=== PATIENT | female | born 1945 | race Caucasian/White ===

== ENCOUNTER 2019-12-29 09:42 | Outpatient (REF) | payer BC, SELFPAY ==
--- NOTE | 2019-12-29 09:47 | MM_ITS ---
EXAMINATION: MM SCREENING DIGITAL BREAST TOMOSYNTHESIS, BILATERAL CLINICAL INFORMATION: Screening. Asymptomatic. The lifetime risk of breast cancer based on the Tyrer-Cuzick Model is 4.3%. COMPARISON: Mammography: November 03, 2018 and studies dating back to March 17, 2011 TECHNIQUE: Digital breast tomosynthesis is performed in both the craniocaudal and mediolateral oblique views along with computer-aided detection (CAD). Synthesized 2D images are generated from the tomosynthesis. FINDINGS: The breasts are heterogeneously dense, which may obscure small masses (ACR BI-RADS breast composition Category c). There are no significant masses, abnormal calcifications, or other abnormalities. MM/MM tomosynthesis screening BI IMPRESSION: There are no significant changes from prior study. ASSESSMENT: BI-RADS 1: Negative RECOMMENDATION: Routine annual mammography screening. This patient's information was entered into a reminder system with a target due date for their next mammogram.
== END 2019-12-29 09:43 | disposition home or self-care (01) ==
LOC: HO.MAMMO 09:42
PROVIDERS: Visit Provider Internal Medicine
DX: Z12.31 Encounter for screening mammogram for malignant neoplasm of breast (principal)
CPT/HCPCS: 77063; 77067

== ENCOUNTER 2020-09-09 07:27 | Day surgery (SDC) | payer MEDICARE, SELFPAY ==
[2020-09-02 14:04] VITALS: BMI 28.9
--- NOTE | 2020-09-05 08:00 | MHC.SHP ---
Pre-Procedural Eval Section A Date of Service: 09/05/20 The patient is an INPATIENT: No The History & Physical has been completed within 30 days and I have reviewed it.: Yes Section B Chief Complaint: Cataract Right Eye Allergies: Allergies Allergy/AdvReac Type Severity Reaction Status Date / Time No Known Allergies Allergy Verified 09/02/20 14:10 Plan Diagnosis/Plan: Unchanged I have reviewed the history and physical and performed a pertinent physical examination on my patient. No changes have occurred unless specified.
--- NOTE | 2020-09-06 10:50 | HO.ANESPROP2 ---
Documented by User: Michelle Mendez 09/06/20 10:52 HPI - Anesthesia Eval Consult details Narrative: 75yo F for Right Cataract Extraction IOL Insertion PCP cleared No prev cataract on record PMFSH Past Medical History Medical History Anxiety COPD (chronic obstructive pulmonary disease) Crohn's disease Depression Elevated cholesterol Lumbar radiculopathy Osteopenia Surgical History Surgical History Hx of appendectomy Hx of tonsillectomy Hx of tubal ligation Hx of wisdom tooth extraction Social History Social History Patient Tobacco Use Status: Former Tobacco user Quit Date: 5-10 years ago Tobacco use type: Cigarette Use of substances other than those prescribed or required for medical reasons: No Advance Directives Information Provided: No Meds Allergies Allergy/AdvReac Type Severity Reaction Status Date / Time No Known Allergies Allergy Verified 09/09/20 09:42 Home Medications Medication Instructions Recorded Confirmed Last Taken Type calcium carbonate-vitamin D2 1 tab PO DAILY 09/02/20 09/02/20 Unknown History [Calcium + Vitamin D] cetirizine 10 mg PO DAILY 09/02/20 09/02/20 Unknown History fluoxetine 2 cap PO QAM 09/02/20 09/02/20 Unknown History mesalamine 2 tab PO DAILY 09/02/20 09/02/20 Unknown History multivitamin 1 tab PO DAILY 09/02/20 09/02/20 Unknown History omega 3-iut-egc-fish oil [Fish Oil] 1 cap PO BID 09/02/20 09/02/20 Unknown History simvastatin 1 tab PO BEDTIME 09/02/20 09/02/20 Unknown History Exam Exam Date and Time: September 06, 2020 1050 Height,Weight and Vital Signs: Height 5 ft 2.75 in Weight 73.482 kg Assessment and Plan Assessment Anesthesia Assessment: Chart Reviewed Documented by User: Tayo King 09/09/20 10:38 [facility] Past Medical History Medical History Anxiety COPD (chronic obstructive pulmonary disease) Crohn's disease Depression Elevated cholesterol Lumbar radiculopathy Osteopenia Surgical History Surgical History Hx of appendectomy Hx of tonsillectomy Hx of tubal ligation Hx of wisdom tooth extraction Social History Social History Patient Tobacco Use Status: Former Tobacco user Quit Date: 5-10 years ago Tobacco use type: Cigarette Use of substances other than those prescribed or required for medical reasons: No Advance Directives Information Provided: No Meds Allergies Allergy/AdvReac Type Severity Reaction Status Date / Time No Known Allergies Allergy Verified 09/09/20 09:42 Home Medications Medication Instructions Recorded Confirmed Last Taken Type calcium carbonate-vitamin D2 1 tab PO DAILY 09/02/20 09/02/20 Unknown History [Calcium + Vitamin D] cetirizine 10 mg PO DAILY 09/02/20 09/02/20 Unknown History fluoxetine 2 cap PO QAM 09/02/20 09/02/20 Unknown History mesalamine 2 tab PO DAILY 09/02/20 09/02/20 Unknown History multivitamin 1 tab PO DAILY 09/02/20 09/02/20 Unknown History omega 1-mkt-lye-fish oil [Fish Oil] 1 cap PO BID 09/02/20 09/02/20 Unknown History simvastatin 1 tab PO BEDTIME 09/02/20 09/02/20 Unknown History Exam Airway Mallampati Class: II TM Dist: >3cm Neck ROM: Full Denture: Upper and Lower Heart: [id number] Lungs: cta b/l Assessment and Plan Assessment Anesthesia Assessment: Anesthesia Plan Discussed, PAT Visit and Chart Reviewed Final Anesthetic Review NPO: Yes ASA Class: III Final Preanesthetic Review: No Changes in Pt Med Stat, Meds/Allgs Chart Reviewed, Consent Obtained/Reviewed and Anes Risks/Benef Reviewed Patient Risk: Intermediate Procedure Risk: Low Assessment/Block/Sedation in SS: Assess/Block/Sedation-SS Anesthetic Plan Anesthetic Plan: MAC: and Agree w/ Assess. and Plan Disposition: Standard PACU
[2020-09-09 09:51] VITALS: BP 139/55; PULSE 63; RESP 18; TEMP 36.5; O2SAT 94
[2020-09-09] MEDS: Lactated Ringers 500 ML 50 ML IV (10:00)
[2020-09-09] MEDS: Tetracaine HCl/PF 0.5% Oph Sol 4 ML DROPS 1 DROP EYE-RIGHT (10:03)
[2020-09-09] MEDS: Tropicamide 1 % Ophth Sol 3 ML BTL 1 DROP EYE-RIGHT ×3 (10:04→10:16)
[2020-09-09] MEDS: Phenylephrine HCL 2.5% Oph SoL 2 ML BOTTLE 1 DROP EYE-RIGHT ×3 (10:08→10:20)
--- NOTE | 2020-09-09 11:12 | HO.PNOPHT ---
Ophthalmology Procedure Procedure Date of Service: 09/09/20 Ophthalmology Viscoelastic: Healon Duet Dual Pack Pro Ophthalmology Lenses: TECNIS [id number] (17.5) Procedure Notes: PREOPERATIVE DIAGNOSIS: Decreased visual acuity right eye secondary to cataract POSTOPERATIVE DIAGNOSIS: Same PROCEDURE: Right cataract extraction with intraocular lens insertion SURGEON: Shakir Mullins M.D. ANESTHESIA: Topical/MAC ESTIMATED BLOOD LOSS: None COMPLICATIONS: None After obtaining informed consent, the patient was brought to the operating room suite and placed in the supine position. After adequate sedation per anesthesia, topical drops of Tetracaine were given to the right eye. The eye was then prepped and draped in the usual sterile fashion. The operating room microscope was then positioned over the operative eye and a lid speculum placed. A paracentesis was created. Viscoelastic was then instilled into the anterior chamber. A three plane incision was then created temporally, utilizing a 2.85 mm keratome. Capsulotomy forceps were then utilized to create a circular tear capsulotomy. Hydrodissection and hydrodelineation were carried out until adequate mobilization of the nucleus occurred. Phacoemulsification was then utilized to remove the dense central nucleus followed by removal of the cortical material utilizing the automated aspiration irrigation unit. Viscoelastic was instilled into the posterior capsular bag followed by placement of a posterior chamber intraocular lens without difficulty. The residual Viscoelastic was then removed utilizing the automated IA machine. The wound was checked and found to be watertight. The patient tolerated the procedure well and the lid speculum was removed. Intracameral injection of Vigamox 0.1 mL followed by a subtenon injection of Kenalog-40 0.2 mL were administered. The patient will be seen in the a.m.
[2020-09-09 11:34] VITALS: BP 115/57; PULSE 66; RESP 12; TEMP 36.1; O2SAT 97
[2020-09-09 11:49] VITALS: BP 107/56; PULSE 64; RESP 16; O2SAT 97
== END 2020-09-09 12:00 | disposition home or self-care (01) ==
PROVIDERS: PCP Internal Medicine; Visit Provider Ophthalmology
PROC: (CPT 66985; principal; 2020-09-09 11:40)
DX: H25.11 Age-related nuclear cataract, right eye (principal); H54.7 Unspecified visual loss; J44.9 Chronic obstructive pulmonary disease, unspecified; E78.00 Pure hypercholesterolemia, unspecified; F33.1 Major depressive disorder, recurrent, moderate; Z79.899 Other long term (current) drug therapy; Z87.891 Personal history of nicotine dependence
CPT/HCPCS: 66984; J2250; J3010; J3300; V2632

== ENCOUNTER 2020-09-16 09:11 | Day surgery (SDC) | payer MEDICARE, SELFPAY ==
[2020-09-02 14:13] VITALS: BMI 28.9
--- NOTE | 2020-09-11 14:15 | MHC.SHP ---
Pre-Procedural Eval Section A Date of Service: 09/11/20 The patient is an INPATIENT: No The History & Physical has been completed within 30 days and I have reviewed it.: Yes Section B Chief Complaint: Cataract Left Eye Allergies: Allergies Allergy/AdvReac Type Severity Reaction Status Date / Time No Known Allergies Allergy Verified 09/09/20 09:42 Plan Diagnosis/Plan: Unchanged I have reviewed the history and physical and performed a pertinent physical examination on my patient. No changes have occurred unless specified.
--- NOTE | 2020-09-13 08:39 | HO.ANESPROP2 ---
Documented by User: Michelle Vanessa 09/13/20 08:40 HPI - Anesthesia Eval Consult details Narrative: 75yo F for Left Cataract Extraction IOL Insertion PCP cleared Right Eye 09/09/20: Fent 48, Midaz 2 PMFSH Past Medical History Medical History Anxiety COPD (chronic obstructive pulmonary disease) Crohn's disease Depression Elevated cholesterol Lumbar radiculopathy Osteopenia Surgical History Surgical History Hx of appendectomy Hx of tonsillectomy Hx of tubal ligation Hx of wisdom tooth extraction Social History Social History Patient Tobacco Use Status: Former Tobacco user Quit Date: 5-10 years ago Tobacco use type: Cigarette Use of substances other than those prescribed or required for medical reasons: No Advance Directives Information Provided: No Meds Allergies Allergy/AdvReac Type Severity Reaction Status Date / Time No Known Allergies Allergy Verified 09/16/20 10:33 Home Medications Medication Instructions Recorded Confirmed Last Taken Type calcium carbonate-vitamin D2 1 tab PO DAILY 09/02/20 09/02/20 Unknown History [Calcium + Vitamin D] cetirizine 10 mg PO DAILY 09/02/20 09/02/20 Unknown History fluoxetine 2 cap PO QAM 09/02/20 09/02/20 Unknown History mesalamine 2 tab PO DAILY 09/02/20 09/02/20 Unknown History multivitamin 1 tab PO DAILY 09/02/20 09/02/20 Unknown History omega 0-cgh-ury-fish oil [Fish Oil] 1 cap PO BID 09/02/20 09/02/20 08/26/20 History simvastatin 1 tab PO BEDTIME 09/02/20 09/02/20 Unknown History Exam Exam Date and Time: September 13, 2020 0839 Height,Weight and Vital Signs: Height 5 ft 2.75 in Weight 73.482 kg Assessment and Plan Assessment Anesthesia Assessment: Chart Reviewed Documented by User: Kaelyn Anti 09/16/20 11:13 PMFSH Past Medical History Medical History Anxiety COPD (chronic obstructive pulmonary disease) Crohn's disease Depression Elevated cholesterol Lumbar radiculopathy Osteopenia Surgical History Surgical History Hx of appendectomy Hx of tonsillectomy Hx of tubal ligation Hx of wisdom tooth extraction Social History Social History Patient Tobacco Use Status: Former Tobacco user Quit Date: 5-10 years ago Tobacco use type: Cigarette Use of substances other than those prescribed or required for medical reasons: No Advance Directives Information Provided: No Meds Allergies Allergy/AdvReac Type Severity Reaction Status Date / Time No Known Allergies Allergy Verified 09/16/20 10:33 Home Medications Medication Instructions Recorded Confirmed Last Taken Type calcium carbonate-vitamin D2 1 tab PO DAILY 09/02/20 09/02/20 Unknown History [Calcium + Vitamin D] cetirizine 10 mg PO DAILY 09/02/20 09/02/20 Unknown History fluoxetine 2 cap PO QAM 09/02/20 09/02/20 Unknown History mesalamine 2 tab PO DAILY 09/02/20 09/02/20 Unknown History multivitamin 1 tab PO DAILY 09/02/20 09/02/20 Unknown History omega 8-xbu-mgt-fish oil [Fish Oil] 1 cap PO BID 09/02/20 09/02/20 08/26/20 History simvastatin 1 tab PO BEDTIME 09/02/20 09/02/20 Unknown History Exam Airway Mallampati Class: II (Edentulous except for 1 bottom tooth) TM Dist: >3cm Neck ROM: Full Loose/Missing/Broken Teeth: Yes, Upper and Lower Heart: RRR Lungs: CTA Assessment and Plan Assessment Anesthesia Assessment: Anesthesia Plan Discussed and Chart Reviewed Final Anesthetic Review NPO: Yes ASA Class: II Final Preanesthetic Review: Meds/Allgs Chart Reviewed, Consent Obtained/Reviewed and Anes Risks/Benef Reviewed Patient Risk: Low Procedure Risk: Low Anesthetic Plan Anesthetic Plan: MAC: Disposition: Standard PACU
[2020-09-16 10:35] VITALS: BP 171/49; PULSE 77; RESP 16; TEMP 36.7; O2SAT 95
[2020-09-16] MEDS: Tetracaine HCl/PF 0.5% Oph Sol 4 ML DROPS 1 DROP EYE-LEFT (10:48)
[2020-09-16] MEDS: Lactated Ringers 500 ML 50 ML IV (10:48)
[2020-09-16] MEDS: Tropicamide 1 % Ophth Sol 3 ML BTL 1 DROP EYE-LEFT ×3 (10:50→10:57)
[2020-09-16] MEDS: Phenylephrine HCL 2.5% Oph SoL 2 ML BOTTLE 1 DROP EYE-LEFT ×3 (10:53→10:58)
--- NOTE | 2020-09-16 12:13 | HO.PNOPHT ---
Ophthalmology Procedure Procedure Date of Service: 09/16/20 Ophthalmology Viscoelastic: Healon Duet Dual Pack Pro Ophthalmology Lenses: TECNIS [id number] (16.5) Procedure Notes: PREOPERATIVE DIAGNOSIS: Decreased visual acuity left eye secondary to cataract POSTOPERATIVE DIAGNOSIS: Same PROCEDURE: Left cataract extraction with intraocular lens insertion SURGEON: Shakir Mullins M.D. ANESTHESIA: Topical/MAC ESTIMATED BLOOD LOSS: None COMPLICATIONS: None After obtaining informed consent, the patient was brought to the operation room suite and placed in the supine position. After adequate sedation per anesthesia, topical drops of Tetracaine were given to the left eye. The eye was then prepped and draped in the usual sterile fashion. The operating room microscope was then positioned over the operative eye and a lid speculum placed. A paracentesis was created. Viscoelastic was then instilled into the anterior chamber. A three plane incision was then created temporally, utilizing a 2.85 mm keratome. Capsulotomy forceps were then utilized to create a circular tear capsulotomy. Hydrodissection and hydrodelineation were carried out until adequate mobilization of the nucleus occurred. Phacoemulsification was then utilized to remove the dense central nucleus followed by removal of the cortical material utilizing the automated aspiration irrigation unit. Viscoat elastic was instilled into the posterior capsular bag followed by placement of a posterior chamber intraocular lens without difficulty. The residual Viscoat elastic was then removed utilizing the automated IA machine. The wound was check and found to be watertight. The patient tolerated the procedure well and the lid speculum was removed. Intracameral injection of Vigamox 0.1 mL followed by a subtenon injection of Kenalog-40 0.2 mL were administered. The patient will be seen in the a.m.
[2020-09-16 12:45] VITALS: BP 149/41; PULSE 76; RESP 16; TEMP 36.2; O2SAT 93
== END 2020-09-16 13:12 | disposition home or self-care (01) ==
PROVIDERS: PCP Internal Medicine; Visit Provider Ophthalmology
PROC: (CPT 66985; principal; 2020-09-16 12:20)
DX: H25.12 Age-related nuclear cataract, left eye (principal); H54.7 Unspecified visual loss; E78.00 Pure hypercholesterolemia, unspecified; K50.10 Crohn's disease of large intestine without complications; F33.1 Major depressive disorder, recurrent, moderate; M85.80 Other specified disorders of bone density and structure, unspecified site; Z79.899 Other long term (current) drug therapy; Z87.891 Personal history of nicotine dependence
CPT/HCPCS: 66984; J2250; J3010; J3300; V2632

== ENCOUNTER 2021-01-10 11:41 | Outpatient (REF) | payer MEDICARE, SELFPAY ==
--- NOTE | ~2021-01-10 | MM_ITS ---
EXAMINATION: MM SCREENING DIGITAL BREAST TOMOSYNTHESIS, BILATERAL CLINICAL INFORMATION: Screening. Asymptomatic. The lifetime risk of breast cancer based on the Tyrer-Cuzick Model is 5%. COMPARISON: Mammography: 12/29/2019, 11/03/2018, 11/01/2017 TECHNIQUE: Digital breast tomosynthesis is performed in both the craniocaudal and mediolateral oblique views along with computer-aided detection (CAD). Synthesized 2D images are generated from the tomosynthesis. Additional left MLO view is provided. FINDINGS: The breasts are heterogeneously dense, which may obscure small masses (ACR BI-RADS breast composition Category c). Breast tissue composition borders on average fibroglandular. Parenchymal pattern is similar to prior studies. There is no developing density or interval mass or architectural abnormality. Again, there are scattered bilateral benign circumscribed heavily calcified nodularity, likely fat necrosis. Scattered bilateral punctate calcifications are again seen. The axilla and skin contours are unremarkable. No significant changes. MM/MM tomosynthesis screening BI IMPRESSION: No mammographic evidence of malignancy. ASSESSMENT: BI-RADS 2: Benign RECOMMENDATION: Routine annual mammography screening. This patient's information was entered into a reminder system with a target due date for their next mammogram.
== END 2021-01-10 11:42 | disposition home or self-care (01) ==
LOC: HO.MAMMO 11:41
PROVIDERS: PCP Internal Medicine; Visit Provider Internal Medicine
DX: Z12.31 Encounter for screening mammogram for malignant neoplasm of breast (principal)
CPT/HCPCS: 77063; 77067

== ENCOUNTER 2021-04-04 09:22 | Outpatient (REF) | payer MEDICARE, SELFPAY ==
[2021-04-04 11:23] LABS: MANUAL DIFF FLAG NO
[2021-04-04 11:26] LABS: Basophils Percent Auto 0.5 % (0-2); Eosinophils Absolute Auto 0.1 X10*3/uL (0.0-0.4); Eosinophils Percent Auto 1.5 % (0-4); Hematocrit 44.9 % (37.0-47.0); Hemoglobin 14.4 g/dl (12.0-16.0); Imm Gran Abs Auto 0.02 X10*3/uL (0.00-0.03); Imm Gran Pct Auto 0.3 % (0.0-0.4); Lymphocytes Absolute Auto 1.6 X10*3/uL (1.2-4.9); Lymphocytes Percent Auto 25.1 % (20-40); Mean Corpuscular HGB Conc 32.1 g/dl (31.0-35.0); Mean Corpuscular Hemoglobin 30.8 pg (27.0-33.0); Mean Corpuscular Volume 96.1 fL (80.0-98.0); Mean Platelet Volume 11.4 fL (9.4-12.3); Monocytes Absolute Auto 0.4 X10*3/uL (0.1-1.2); Monocytes Percent Auto 6.6 % (2-11); Neutrophils Absolute Auto 4.1 x10*3/uL (2.0-8.3); Platelet Count 224 X10*3/uL (160-400); Red Blood Count 4.67 X10*6/uL (4.20-5.50); White Blood Count 6.2 X10*3/uL (4.8-10.8)
[2021-04-04 11:52] LABS: Appearance Urine CLEAR; Color Urine YELLOW; Glucose Urine UA NEG (NEG); Leukocyte Esterase Urine NEG (NEG); Nitrite Urine NEG (NEG); PH 5.5 (5.0-8.0); Specific Gravity - Urine >= 1.030 (1.005-1.025); Urine Blood NEG (NEG); Urine Ketones NEG (NEG); Urine Protein NEG (NEG-TRACE)
[2021-04-04 11:57] LABS: Alanine Aminotransferase 15 U/L (0-31); Albumin Level 4.4 g/dL (3.5-5.0); Alkaline Phosphatase 86 U/L (39-117); Anion Gap 15 (12-20); Aspartate Amino Transferase 19 U/L (5-31); Bilirubin Total 0.9 mg/dL (0.0-1.0); Blood Urea Nitrogen 8 mg/dL (9-16); Calcium 9.5 mg/dL (8.4-10.2); Carbon Dioxide 25 mmol/L (22-29); Chloride 105 mmol/L (96-108); Cholesterol 183 mg/dL; Estimated Glomerular Filt Rate > 60; Glucose Fasting 103 mg/dL (60-99); HDL Cholesterol 48 mg/dL; LDL Cholesterol Calculated 98 mg/dl; Potassium 4.3 mmol/L (3.3-5.1); Sodium 141 mmol/L (135-145); Total Protein 7.1 g/dL (6.5-8.0); Triglycerides 185 mg/dL
[2021-04-04 11:58] LABS: Thyroid Stimulating Hormone 1.57 uIU/mL (0.32-4.0)
[2021-04-04 12:42] LABS: Bacteria Urine TRACE /LPF; RBC Urine 0 /HPF (0); Squamous Epithelial Cell Urine 2+ /LPF; WBC Urine 0-2 /HPF (0-4)
== END 2021-04-04 09:23 | disposition home or self-care (01) ==
LOC: HO.HMGCLDS 09:22
PROVIDERS: Visit Provider Internal Medicine
DX: K50.10 Crohn's disease of large intestine without complications (principal); E78.00 Pure hypercholesterolemia, unspecified; F41.9 Anxiety disorder, unspecified
CPT/HCPCS: 36415; 80053; 80061; 81001; 82306; 84443; 85025

== ENCOUNTER 2021-04-11 09:14 | Outpatient (REF) | payer MEDICARE, SELFPAY ==
--- NOTE | 2021-04-11 10:01 | MHC.AU.ANO ---
Adult Audiological Evaluation Date of Visit: 04/11/21 Reason for Appointment: Patient has begun to notice increased difficulty hearing the television, especially if there is music or sound effects in the background. She has started to use closed captioning to help her follow along. She feels she hears well in most conversations. Has hearing been tested previously?: No Ear History: Ear Deformity: None Reported Recent Ear Drainage: None Reported Recent Ear Pain: None Reported Family History of Hearing Loss?: Yes: Mother Recent Ear Infections: None Reported Ear Infections in Childhood: Both Ears History of Ear Wax Buildup: None Reported Previous Ear Surgery: None Reported Bothersome Tinnitus/Ringing/Noises in Ears: Both Ears Ear used on the phone: Right Ear Blocked/Full Sensation in Ear(s): None Reported History of occupational noise exposure?: No History: No Medical History: Medical History: Crohn's Disease, Tobacco Use (former smoker), Tonsillectomy at age 4 Medication List: Mesalamine, Simvastatin, Fluoxetine, Fish Oil, Calcium, Cetirizine, Multivitamin Otoscopy: Right Ear: Unremarkable Left Ear: Unremarkable Tympanometry: Tympanometry performed due to: To assess integrity of the middle ear system Right Ear: Normal Middle Ear System (Type A) Left Ear: Normal Middle Ear System (Type A) Hearing Evaluation: Transducer(s) Used: Insert Earphones Method: Conventional Audiometry Stimuli Used: Pure Tones Right Ear: Description of Hearing: Normal/borderline-normal from 250-2000 Hz, sloping to severe sensorineural hearing loss by 8000 Hz Left Ear: Description of Hearing: Normal/borderline-normal from 250-2000 Hz, sloping to severe sensorineural hearing loss by 8000 Hz Speech Recognition Threshold (SRT): Method Used: Recorded Lists Stimuli Used: Spondee Words Right Ear: 20 dBHL Left Ear: 15 dBHL Word Discrimination: Method: Recorded Lists Word Lists Used: W-22 Right Ear: 96% at 60 dBHl Left Ear: 100% at 60 dBHL Most Comfortable Level (MCL): Right Ear: 60 dBHL Left Ear: 60 dBHL Recommendations: Audiological re-evaluation in 2 years, or sooner if changes are noted. Amplification is not warranted at this time. Diagnosis: Primary Diagnosis: H90.3 Bilateral Sensorineural Hearing Loss Signature: Provider: Russell Montiel, CCC-A
== END 2021-04-11 09:15 | disposition home or self-care (01) ==
LOC: HO.SH 09:14
PROVIDERS: Visit Provider Internal Medicine
DX: Z01.118 Encounter for examination of ears and hearing with other abnormal findings (principal); H90.3 Sensorineural hearing loss, bilateral
CPT/HCPCS: 92557; 92567

== ENCOUNTER 2022-01-12 11:46 | Outpatient (REF) | payer MEDICARE, SELFPAY ==
--- NOTE | ~2022-01-12 | MM_ITS ---
EXAMINATION: MM SCREENING DIGITAL BREAST TOMOSYNTHESIS, BILATERAL CLINICAL INFORMATION: Screening. Asymptomatic. Family history breast cancer, sister. COMPARISON: Mammography: 01/10/2021, 12/29/2019, 11/03/2018 TECHNIQUE: Digital breast tomosynthesis is performed in both the craniocaudal and mediolateral oblique views along with computer-aided detection (CAD). Synthesized 2D images are generated from the tomosynthesis. FINDINGS: The breasts are heterogeneously dense, which may obscure small masses (ACR BI-RADS breast composition Category c). There are no significant masses, abnormal calcifications, or other abnormalities. Breast tissue composition borders on average fibroglandular. Scattered bilateral benign circumscribed heavily calcified nodularity is present along with scattered punctate benign round calcifications Breast. There is no interval significant mass, developing density, or architectural abnormality. No significant changes. MM/MM tomosynthesis screening BI IMPRESSION: No mammographic evidence of malignancy. ASSESSMENT: BI-RADS 2: Benign RECOMMENDATION: Routine annual mammography screening. This patient's information was entered into a reminder system with a target due date for their next mammogram.
== END 2022-01-12 11:47 | disposition home or self-care (01) ==
LOC: HO.MAMMO 11:46
PROVIDERS: PCP Internal Medicine; Visit Provider Internal Medicine
DX: Z12.31 Encounter for screening mammogram for malignant neoplasm of breast (principal)
CPT/HCPCS: 77063; 77067

== ENCOUNTER 2023-01-08 09:14 | Outpatient (REF) | payer MEDICARE, SELFPAY ==
[2023-01-08 11:26] LABS: MANUAL DIFF FLAG NO
[2023-01-08 11:38] LABS: Basophils Percent Auto 0.5 % (0-2); Eosinophils Absolute Auto 0.1 X10*3/uL (0.0-0.4); Eosinophils Percent Auto 2.4 % (0-4); Hematocrit 43.6 % (37.0-47.0); Hemoglobin 14.2 g/dl (12.0-16.0); Imm Gran Abs Auto 0.01 X10*3/uL (0.00-0.03); Imm Gran Pct Auto 0.2 % (0.0-0.4); Lymphocytes Absolute Auto 1.8 X10*3/uL (1.2-4.9); Lymphocytes Percent Auto 42.8 % (20-40); Mean Corpuscular HGB Conc 32.6 g/dl (31.0-35.0); Mean Corpuscular Volume 98.2 fL (80.0-98.0); Mean Platelet Volume 10.5 fL (9.4-12.3); Monocytes Absolute Auto 0.5 X10*3/uL (0.1-1.2); Monocytes Percent Auto 11.1 % (2-11); Neutrophils Absolute Auto 1.8 x10*3/uL (2.0-8.3); Platelet Count 181 X10*3/uL (160-400); Red Blood Count 4.44 X10*6/uL (4.20-5.50); Red Cell Distribution Width 13.9 % (11.0-16.0); White Blood Count 4.1 X10*3/uL (4.8-10.8)
[2023-01-08 12:21] LABS: Thyroid Stimulating Hormone 2.79 uIU/mL (0.32-4.0); Vitamin D 25-OH Total 90.5 ng/mL (>30)
[2023-01-08 12:29] LABS: Anion Gap 11 (12-20)
[2023-01-08 12:34] LABS: Alanine Aminotransferase 21 U/L (0-31); Albumin Level 4.3 g/dL (3.5-5.0); Alkaline Phosphatase 71 U/L (39-117); Aspartate Amino Transferase 26 U/L (5-31); Bilirubin Total 0.7 mg/dL (0.0-1.0); Blood Urea Nitrogen 12 mg/dL (9-16); Calcium 9.2 mg/dL (8.4-10.2); Carbon Dioxide 30 mmol/L (22-29); Chloride 104 mmol/L (96-108); Cholesterol 183 mg/dL (<200); Estimated Glomerular Filt Rate > 60; Glucose Fasting 111 mg/dL (60-99); HDL Cholesterol 66 mg/dL (>40); LDL Cholesterol Calculated 88 mg/dL (<100); Potassium 3.7 mmol/L (3.3-5.1); Sodium 141 mmol/L (135-145); Total Protein 7.2 g/dL (6.5-8.0); Triglycerides 147 mg/dL (<150)
== END 2023-01-08 09:15 | disposition home or self-care (01) ==
LOC: HO.HMGCLDS 09:14
PROVIDERS: PCP Internal Medicine; Visit Provider Internal Medicine
DX: Z00.00 Encounter for general adult medical examination without abnormal findings (principal); E78.00 Pure hypercholesterolemia, unspecified; K50.10 Crohn's disease of large intestine without complications; F41.9 Anxiety disorder, unspecified
CPT/HCPCS: 36415; 80053; 80061; 82306; 84443; 85025

== ENCOUNTER 2023-01-16 10:30 | Outpatient (REF) | payer MEDICARE, SELFPAY ==
--- NOTE | ~2023-01-16 | MM_ITS ---
EXAMINATION: MM SCREENING DIGITAL BREAST TOMOSYNTHESIS, BILATERAL CLINICAL INFORMATION: Screening. Asymptomatic. COMPARISON: Mammography: This study is compared with prior exams dating back to 2017. TECHNIQUE: Digital breast tomosynthesis is performed in both the craniocaudal and mediolateral oblique views along with computer-aided detection (CAD). Synthesized 2D images are generated from the tomosynthesis. FINDINGS: There are scattered areas of fibroglandular density (ACR BI-RADS breast composition Category b). There are no significant masses, abnormal calcifications, or other abnormalities. Multiple, bilateral benign calcifications are present. MM/MM tomosynthesis screening BI IMPRESSION: No mammographic evidence of malignancy. ASSESSMENT: BI-RADS BI-RADS 2 - Benign Findings RECOMMENDATION: Routine annual mammography screening. 1 year F/U This examination should not preclude the clinical evaluation of a suspicious palpable abnormality. This patient's information was entered into a reminder system with a target due date for their next mammogram.
== END 2023-01-16 10:31 | disposition home or self-care (01) ==
LOC: HO.MAMMO 10:30
PROVIDERS: PCP Internal Medicine; Visit Provider Internal Medicine
DX: Z12.31 Encounter for screening mammogram for malignant neoplasm of breast (principal)
CPT/HCPCS: 77063; 77067

== ENCOUNTER → 2023-01-16 10:30 | Outpatient (BNV) | payer MEDICARE, SELFPAY | PROVIDERS: PCP Internal Medicine; Visit Provider Radiology Diagnostic Radiology | DX: Z12.31 Encounter for screening mammogram for malignant neoplasm of breast (principal) | CPT/HCPCS: 77063; 77067 ==

== ENCOUNTER 2023-07-24 09:47 | Outpatient (REF) | payer MEDICARE, SELFPAY ==
[2023-07-24 12:32] LABS: Anion Gap 16 (12-20); Blood Urea Nitrogen 12 mg/dL (9-16); Carbon Dioxide 32 mmol/L (22-29); Chloride 95 mmol/L (96-108); Estimated Glomerular Filt Rate > 60; Glucose Random 176 mg/dL (60-115); Potassium 2.8 mmol/L (3.3-5.1); Sodium 140 mmol/L (135-145)
== END 2023-07-24 09:48 | disposition home or self-care (01) ==
LOC: HO.HMGCLDS 09:47
PROVIDERS: PCP Internal Medicine; Visit Provider Internal Medicine
DX: R60.0 Localized edema (principal)
CPT/HCPCS: 36415; 80048

== ENCOUNTER 2023-08-10 07:27 | Outpatient (REF) | payer MEDICARE, SELFPAY ==
[2023-08-10 11:05] LABS: Alanine Aminotransferase 28 U/L (0-31); Albumin Level 4.3 g/dL (3.5-5.0); Alkaline Phosphatase 79 U/L (39-117); Anion Gap 15 (12-20); Aspartate Amino Transferase 44 U/L (5-31); Bilirubin Total 1.1 mg/dL (0.0-1.0); Blood Urea Nitrogen 9 mg/dL (9-16); Calcium 9.6 mg/dL (8.4-10.2); Carbon Dioxide 30 mmol/L (22-29); Chloride 98 mmol/L (96-108); Estimated Glomerular Filt Rate > 60; Glucose Random 136 mg/dL (60-115); Potassium 3.1 mmol/L (3.3-5.1); Sodium 140 mmol/L (135-145); Total Protein 7.4 g/dL (6.5-8.0)
== END 2023-08-10 07:28 | disposition home or self-care (01) ==
LOC: HO.HMGCLDS 07:27
PROVIDERS: PCP Internal Medicine; Visit Provider Internal Medicine
DX: R60.0 Localized edema (principal)
CPT/HCPCS: 36415; 80053

== ENCOUNTER → 2023-12-01 15:01 | Outpatient (REF) | payer MEDICARE, SELFPAY ==
--- NOTE | 2023-12-01 15:03 | ECG_ITS ---
Test Reason : dyspnea on exertion Blood Pressure : / mmHG Vent. Rate : 075 BPM Atrial Rate : 075 BPM P-R Int : 160 ms QRS Dur : 076 ms QT Int : 414 ms P-R-T Axes : 068 062 077 degrees QTc Int : 462 ms Normal sinus rhythm Nonspecific ST and T wave abnormality Abnormal ECG When compared with ECG of 06-JUL-2006 10:51, Nonspecific T wave abnormality no longer evident in Inferior leads T wave inversion now evident in Anterior leads Referred By: Isaias Suárez Electronically Signed By:NAVI THORPE MD
--- NOTE | 2023-12-01 15:05 | CA_ITS ---
Transthoracic Echocardiogram Patient (Last, First, Middle): Geno Sarah A Gender: Female Date of : 1945 Age: 78 Procedure Date: 12/01/2023 Procedure Type: Transthoracic Echocardiogram Location: OP Height: 162.56 cm Weight: 72.58 kg BSA: 1.78 m2 Heart Rate: bpm BP: 140 / 72 mmHg [employer] Supervisor: TO Referring MD: Isaias Suárez DO Stringing Machine Tender: Gama Ford MD Symptoms: DYSPNEA ON EXERTION Study Quality: Technically Difficult, contrast ECG Rhythm: Sinus Conclusions: - 1. Technically limited study despite use of contrast agent 2. LV systolic function appears to be normal with LVEF of 60-65% 3. Limited visualization of cardiac valves with cardiac valvular Dopplers within normal limits Findings Procedure Information Contrast agent, definity, is being given per protocol without apparent complications. The study quality is limited by patients body habitus and lung artifact. Left Ventricle The left ventricle was not well visualized. Normal left ventricular cavity size. The left ventricular systolic function is normal. The visually estimated ejection fraction is between 60-65%. Spectral Doppler is indicative of an impaired relaxation filling pattern. Right Ventricle The right ventricle was not well visualized. Atria The left atrium was not well visualized. Interatrial shunt cannot be excluded. The right atrium was not well visualized. Aortic Valve The aortic valve was not well visualized. There is no aortic valve stenosis. There is no aortic valve regurgitation. Mitral Valve The mitral valve was not well visualized. There is mild posterior mitral leaflet thickening. There is mild posterior mitral annular calcification. There is no mitral valve regurgitation. There is no mitral valve stenosis. Pulmonic Valve The pulmonic valve was not well visualized. Tricuspid Valve The tricuspid valve was not well visualized. Tricuspid regurgitation envelope is inadequate for calculation of right ventricular systolic pressure. Great Vessels The aorta was not well visualized. The pulmonary artery was not well visualized. Venous The inferior vena cava is normal in size and collapses greater than 50% with inspiration. Pericardium/Pleural There is a small loculated pericardial effusion overlying the right ventricle. this is visualized only on subcostal view and pericardium was not entirely otherwise well visualized. Prior Study Comparison No prior study available for comparison. Measurements 2D Linear Measurements IVSd: 0.96 0.6-0.9/0.6-1.0 cm LVIDd: 3.35 3.9-5.3/4.2-5.9 cm LVIDd Index: 1.88 2.4-3.2/2.2-3.1 cm/m2 LVIDs: 2.45 2.0-3.6 cm LVPWd: 0.90 0.7-1.1 cm LA Diam: 2.90 2.7-3.8/3.0-4.0 cm LAIDs Index: 1.63 1.5-2.3 cm/m2 LV Mass: 108.32 67-162/88-224 g LV Mass Index: 60.85 43-95/49-115 g/m2 LVOT Diam: 2.00 3.0+(-)1.3 cm Mitral Valve MV VTI: 0.28 MV Pk Omer: 1.26 MV Mn Omer: 0.67 MV Pk Grad: 6.00 MV Mn Grad: 2.00 MV Pk E: 0.74 MV PK A: 1.10 MV Decel Time: 234.00 E/A: 0.70 E'Lateral: 5.00 E'Medial: 5.11 E/E' Med: 14.40 E/E' Lat: 14.70 PHT: 68.00 MVA PHT: 3.24 MVA Continuity: 2.32 Decel [place]: 3.15 Aortic Valve AoV Pk Omer: 0.96 AoV Pk Grad: 4.00 LVOT LVOT Pk Omer: 0.95 LVOT Mn Omer: 0.56 LVOT VTI: 0.21 LVOT Pk Grad: 4.00 LVOT Mn Grad: 2.00 LVOT Diam: 2.00 LVOT Area: 3.14 Diastolic Function MV Pk E: 0.74 MV Pk A: 1.10 E/A: 0.70 E'Medial: 5.11 E/E' Med: 14.40 E' Laterial: 5.00 E/E' Lat: 14.70 Right Ventricle TVS' Omer: 11.60 Tricuspid Valve RA Press: 3.00 Great Vessels Aorta Sinus of Valsalva: 2.86 2.0-3.5 cm Updated in Other Vendor System with Status of Final Gama Ford MD electronically signed on 12/02/2023 11:50:35 AM with status of Final
== END ==
LOC: HO.CARD 15:01
PROVIDERS: PCP Internal Medicine; Visit Provider Internal Medicine
DX: R06.09 Other forms of dyspnea (principal)
CPT/HCPCS: 93005; 93306; Q9957

== ENCOUNTER → 2023-12-01 15:03 | Outpatient (BNV) | payer MEDICARE, SELFPAY | PROVIDERS: PCP Internal Medicine; Visit Provider Internal Medicine Cardiovascular Disease | DX: I34.81 Nonrheumatic mitral (valve) annulus calcification (principal); R06.09 Other forms of dyspnea; R94.31 Abnormal electrocardiogram [ECG] [EKG] | CPT/HCPCS: 93010; 93306 ==

== ENCOUNTER 2023-12-09 10:00 | Outpatient (REF) | payer MEDICARE, SELFPAY ==
--- NOTE | ~2023-12-09 | XR_ITS ---
EXAMINATION: XR CHEST 2 VIEWS CLINICAL INFORMATION: Dyspnea R06.09. COMPARISON: XR Chest 08/28/2014 (Report only). TECHNIQUE: 2 views of the chest were obtained. FINDINGS: The lungs are hyperexpanded. No consolidation, edema, or effusion. No pneumothorax. The cardiomediastinal silhouette is normal in size with a calcified aorta. Mild degenerative changes of the spine. XR/XR chest 2V IMPRESSION: Hyperexpanded lungs. No consolidation. Electronically signed by: Sergio Hwang MD 02/02/2024 07:54 AM EST
[2023-12-09 13:19] LABS: MANUAL DIFF FLAG NO
[2023-12-09 13:34] LABS: Basophils Percent Auto 0.6 % (0-2); Eosinophils Absolute Auto 0.2 X10*3/uL (0.0-0.4); Eosinophils Percent Auto 4.1 % (0-4); Hematocrit 46.1 % (37.0-47.0); Hemoglobin 14.9 g/dl (12.0-16.0); Imm Gran Abs Auto 0.01 X10*3/uL (0.00-0.03); Imm Gran Pct Auto 0.2 % (0.0-0.4); Lymphocytes Absolute Auto 2.1 X10*3/uL (1.2-4.9); Lymphocytes Percent Auto 39.9 % (20-40); Mean Corpuscular HGB Conc 32.3 g/dl (31.0-35.0); Mean Corpuscular Hemoglobin 32.8 pg (27.0-33.0); Mean Corpuscular Volume 101.5 fL (80.0-98.0); Mean Platelet Volume 10.9 fL (9.4-12.3); Monocytes Absolute Auto 0.4 X10*3/uL (0.1-1.2); Monocytes Percent Auto 8.3 % (2-11); Neutrophils Absolute Auto 2.5 x10*3/uL (2.0-8.3); Neutrophils Percent Auto 46.9 % (45-73); Platelet Count 143 X10*3/uL (160-400); Red Blood Count 4.54 X10*6/uL (4.20-5.50); Red Cell Distribution Width 12.7 % (11.0-16.0); White Blood Count 5.3 X10*3/uL (4.8-10.8)
[2023-12-09 14:03] LABS: Alanine Aminotransferase 28 U/L (0-31); Albumin Level 4.4 g/dL (3.5-5.0); Alkaline Phosphatase 79 U/L (39-117); Anion Gap 12 (12-20); Aspartate Amino Transferase 28 U/L (5-31); Bilirubin Total 0.7 mg/dL (0.0-1.0); Blood Urea Nitrogen 8 mg/dL (9-16); Calcium 9.6 mg/dL (8.4-10.2); Carbon Dioxide 29 mmol/L (22-29); Chloride 104 mmol/L (96-108); Estimated Glomerular Filt Rate > 60; Glucose Random 199 mg/dL (60-115); Potassium 3.6 mmol/L (3.3-5.1); Sodium 141 mmol/L (135-145); Total Protein 7.2 g/dL (6.5-8.0)
[2023-12-09 14:20] LABS: Thyroid Stimulating Hormone 1.58 uIU/mL (0.32-4.0)
[2023-12-09 14:22] LABS: B Type Natriuretic Peptide 72 pg/mL (<100)
== END 2023-12-09 10:01 | disposition home or self-care (01) ==
LOC: HO.HMGCX 10:00
PROVIDERS: PCP Internal Medicine; Visit Provider Internal Medicine
DX: R06.09 Other forms of dyspnea (principal); E78.00 Pure hypercholesterolemia, unspecified
CPT/HCPCS: 36415; 71046; 80053; 83880; 84443; 85025

== ENCOUNTER 2024-02-01 14:31 | Outpatient (REF) | payer MEDICARE, SELFPAY | END 2024-02-01 14:32 | disposition home or self-care (01) | LOC: HO.MAMMO 14:31 | PROVIDERS: PCP Internal Medicine; Visit Provider Internal Medicine | DX: Z12.31 Encounter for screening mammogram for malignant neoplasm of breast (principal) | CPT/HCPCS: 77063; 77067 ==

== ENCOUNTER → 2024-02-01 14:45 | Outpatient (BNV) | payer MEDICARE, SELFPAY | PROVIDERS: PCP Internal Medicine; Visit Provider Internal Medicine | DX: Z12.31 Encounter for screening mammogram for malignant neoplasm of breast (principal) | CPT/HCPCS: 77063; 77067 ==

== ENCOUNTER 2024-04-05 11:04 | Outpatient (AMB) | payer MEDICARE, SELFPAY ==
--- NOTE | 2024-04-05 11:12 | A.OFFPC_ITS ---
Vital Signs 04/05/24 11:19 Height 5 ft 1 in Weight 166 lb BMI 31.4 BP 132/58 L Blood Pressure Location Rt brachial Position Right Lateral Pulse 77 Pulse Source Pulse Oximeter Temp 97.0 F Pulse Oximetry (%) 97 Intake Visit Reasons: 3 month follow up Intake Note: would like to discuus her breathing and up coming mammogram and adema sugar has been high questioning diabetes Allergies No Known Allergies Allergy (Verified 04/05/24 11:41) Medication List - Last Reconciled 04/05/24 by Evelyn Rose PA-C albuterol sulfate 90 mcg/actuation 1 inh inhalation QID calcium carbonate-vitamin D2 600 mg calcium- 200 unit 1 tab PO DAILY cetirizine 10 mg PO DAILY fluoxetine 2 caps PO QAM fluticasone propion-salmeterol 250-50 mcg/dose 1 inh inhalation BID multivitamin 1 tab PO DAILY omega 0-tkz-lhp-fish oil 1,200 (144-216) mg (Fish Oil) 1 cap PO BID simvastatin 1 tab PO BEDTIME [facility] Medical History History of mammogram (~02/01/24) Peripheral edema Fibrocystic breast disease Mild hypercholesterolemia Lumbar radiculopathy Osteopenia Crohn's disease Anxiety Depression COPD (chronic obstructive pulmonary disease) Elevated cholesterol Surgical History History of colonoscopy (~08/12/18) Hx of appendectomy Hx of tubal ligation Hx of wisdom tooth extraction Hx of tonsillectomy Social History Patient Tobacco Use Status: Former Tobacco user Tobacco use type: Cigarette Physical exam (Primary Care) Vital Signs: Last Vital Signs Temp 97.0 F 04/05/24 11:19 Pulse 77 04/05/24 11:19 BP 132/58 L 04/05/24 11:19 Pulse Ox 97 04/05/24 11:19 Care Plan Goal for BP management: 130/80 at goal BMI result Body Mass Index 31.4 BMI Assessment/Plan discussion: High BMI High, discussed plan: lifestyle, weight reduction, dietary, physical activity and alcohol moderation Tobacco/Smoking Status: Tobacco use Status Patient Tobacco Use Status Former Tobacco user 04/05/24 11:17 Tobacco use type Cigarette 04/05/24 11:17 Coding Level of Care Code New Pt Level 4 (04619) Complex EM visit Add On G2211 Diagnoses Peripheral edema R60.0 Fibrocystic breast disease N60.19 Mild hypercholesterolemia E78.00 COPD (chronic obstructive pulmonary disease) J44.9 Depression F32.9 Anxiety F41.9 Osteopenia M85.80 Crohn's disease K50.90 Assessment & Plan Assessment & Plan (1) Peripheral edema: Code(s): R60.0 - Localized edema Category: Medical Plan: Condition is chronic stable continue to monitor. (2) Fibrocystic breast disease: Code(s): N60.19 - Diffuse cystic mastopathy of unspecified breast Category: Medical Plan: Condition is chronic stable continue to monitor. (3) Mild hypercholesterolemia: Code(s): E78.00 - Pure hypercholesterolemia, unspecified Category: Medical Plan: Patient currently on simvastatin once at bedtime, fish oil and multivitamin along with vitamin-D. Condition is chronic staple wants any to monitor. (4) COPD (chronic obstructive pulmonary disease): Code(s): J44.9 - Chronic obstructive pulmonary disease, unspecified Category: Medical Plan: Patient currently on albuterol, fluticasone/Solu-Medrol inhaler. Condition is chronic and stable 70 to monitor. (5) Depression: Code(s): F32.9 - Major depressive disorder, single episode, unspecified Category: Medical Plan: Condition is chronic and stable continue to monitor. (6) Anxiety: Code(s): F41.9 - Anxiety disorder, unspecified Category: Medical Plan: Condition is chronic and stable continue to monitor. (7) Osteopenia: Code(s): M85.80 - Other specified disorders of bone density and structure, unspecified site Category: Medical Plan: Patient currently on calcium carbonate vitamin D2, multivitamin. Condition is chronic and stable is any to monitor. (8) Crohn's disease: Code(s): K50.90 - Crohn's disease, unspecified, without complications Category: Medical Plan: Condition is chronic and stable continue to monitor. Plan Plan - Continue current p.r.n. albuterol, cfosoopykxd-Ydqp-Cryblq inhaler regimen for COPD, with reinforcement to use twice daily. - Refill prescribed for fluoxetine; continue at 20 mg daily. - Order comprehensive blood work: CBC, comprehensive metabolic panel, lipid panel, liver panel, magnesium, vitamin B1, , and vitamin D assessment. - Hemoglobin A1c to assess diabetes risk due to reported elevated blood sugar. - Schedule a follow-up appointment in six months for reevaluation unless blood test results necessitate earlier intervention. - Monitor recent mammogram findings with follow-up diagnostic imaging as discussed. Orders: Orders Complete Blood Count Auto Diff 04/05/24. - Encounter for general adult medical examination without abnormal findings Comprehensive [place]. Panel Fast 04/05/24. - Encounter for general adult medical examination without abnormal findings C Reactive Protein 04/05/24. - Encounter for general adult medical examination without abnormal findings Hemoglobin A1c 04/05/24. - Encounter for general adult medical examination without abnormal findings Magnesium 04/05/24. - Encounter for general adult medical examination without abnormal findings Phosphorus 04/05/24. - Encounter for general adult medical examination without abnormal findings Vitamin B1 04/05/24. - Encounter for general adult medical examination without abnormal findings Vitamin B12 and Folate 04/05/24. - Encounter for general adult medical examination without abnormal findings Lipid Panel 04/05/24. - Encounter for general adult medical examination without abnormal findings Liver Panel 04/05/24. - Encounter for general adult medical examination without abnormal findings TSH reflex Free T4 04/05/24. - Encounter for general adult medical examination without abnormal findings PTH Intact Intraoperative 04/05/24. - Encounter for general adult medical examination without abnormal findings Vitamin D 25-OH Total 04/05/24. - Encounter for general adult medical examination without abnormal findings Medications: Changed From fluoxetine 2 caps PO QAM To fluoxetine 20 mg PO QAM 90 caps 3RF 90 days Patient Instructions: Patient Instructions - Continue using the inhaler twice daily as prescribed. - Take fluoxetine 20 mg daily as adjusted. - Complete all blood tests as soon as possible. - Fast for at least 12 hours before the blood test for accurate results. - Report any changes in symptoms or concerns regarding medications, especially for COPD. - Follow up with diagnostic imaging as advised. - Return to the clinic in six months for the scheduled follow-up unless advised otherwise based on lab results. Scribe Plan - Not visible on output: History of Present Illness The patient is an 78-year-old female presenting with a three-month follow-up for COPD management. The condition has been managed with albuterol and a combination inhaler containing fluticasone. The patient reports using these medications as prescribed, inhaling the powder twice daily, which she feels has been somewhat beneficial with her breathing, although she still feels a significant improvement is yet to be achieved. She experiences a chronic issue of high cholesterol managed with simvastatin 40 mg and fish oil supplementation. Additionally, the patient is on a regimen including vitamin D, sertraline, calcium, a multivitamin, and fluoxetine, which she has recently down-titrated from 40 mg to 20 mg due to improved depressive symptoms. She particularly noted a need for medication refills concerning fluoxetine. The patient has a history of Crohn's disease currently in remission and has fibrocystic breast disease, which was last monitored with a mammogram in January. Concerning her history of peripheral edema and osteopenia, there have not been any reports of associated acute complications at present. She also discussed previously having cataract surgery two years ago, which has significantly improved her vision. Social History - Retired, living independently at home. - Able to perform activities of daily living unassisted. - Drives herself and manages household tasks efficiently. Review of Systems - Gastrointestinal: Reports black, non-bloody stools. - Musculoskeletal: Denies current chronic back pain. - Vision: Cataract surgery performed two years ago. Physical Exam Appearance: Alert. Oriented X3. No acute distress. Head: Normal external exam. Normocephalic. Atraumatic. Eyes: Pupils are equal, round, and reactive to light. Extraocular movements intact. Conjunctiva and sclera normal. Eyelids normal. Patient has had cataract surgery two years ago. Ears: External auditory canal normal. Tympanic membranes normal. Hearing is okay. Throat: Pharynx normal. Uvula midline. Moist mucous membranes. Upper and lower dentures noted; full on the top and partial on the bottom. Neck: Normal inspection. Neck supple. Full range of motion. No adenopathy. Thyroid Normal. No meningeal signs. No neck mass noted. No pain or discomfort with swallowing. Cardiovascular: Normal heart rate and rhythm. Heart sound normal. No murmurs noted. Pulses normal throughout. Respiratory: No respiratory distress. Painless inspiration. Breath sounds normal. No wheezes/rales/rhonchi noted. Chest nontender. No accessory muscle usage noted or decreased air movement noted. Abdomen: Soft and nontender. Bowel sounds normal in all 4 quadrants. No dis tention noted. No organomegaly noted. No visible injury noted. Stool described as chocolate cream color, not black or bloody. Back: No costovertebral angle tenderness. Full range of motion noted. Skin: Skin warm and dry. Normal skin color. Normal skin turgor. No rashes/lesions/lacerations noted. Extremities: No lower extremity edema. Extremities exhibit normal range of motion. Extremities nontender. Neuro: Oriented X 3. No motor deficit. No sensory deficit. Reflexes normal. Plan - Continue current p.r.n. albuterol, vgrccacbipf-Zsxu-Adheuf inhaler regimen for COPD, with reinforcement to use twice daily. - Refill prescribed for fluoxetine; continue at 20 mg daily. - Order comprehensive blood work: CBC, comprehensive metabolic panel, lipid panel, liver panel, magnesium, vitamin B1, , and vitamin D assessment. - Hemoglobin A1c to assess diabetes risk due to reported elevated blood sugar. - Schedule a follow-up appointment in six months for reevaluation unless blood test results necessitate earlier intervention. - Monitor recent mammogram findings with follow-up diagnostic imaging as discussed. Patient was informed and verbally consented to the use of an ambient scribe for clinic note documentation during this visit. Discussion Notes I discussed with Geno her current medication regimen, emphasizing the importance of consistency in using her inhaler to manage COPD symptoms effect ively. She understands the necessity of taking fluoxetine at the adjusted dose. We reviewed the essential components of her upcoming lab work, including its purpose in assessing her potential diabetes risk due to her family history and elevated blood sugar. Additionally, we talked about the importance of follow-up imaging for her fibrocystic breast disease noted on her last mammogram. Geno was informed of her next scheduled visit and when she should return sooner in response to abnormal lab findings. Patient Instructions - Continue using the inhaler twice daily as prescribed. - Take fluoxetine 20 mg daily as adjusted. - Complete all blood tests as soon as possible. - Fast for at least 12 hours before the blood test for accurate results. - Report any changes in symptoms or concerns regarding medications, especially for COPD. - Follow up with diagnostic imaging as advised. - Return to the clinic in six months for the scheduled follow-up unless advised otherwise based on lab results.
[2024-04-05 11:19] VITALS: BP 132/58; PULSE 77; TEMP 36.1; O2SAT 97; BMI 31.4
--- OUTSIDE RECORDS SUMMARY | 2024-04-05 12:54 | XMS_ITS ---
Author Organization Isaias Suárez DO, FACP Address [address] [place], [place] [id number] Care Team Providers Care Local Owner Operator Truck Driver Name Role Phone Isaias Suárez Primary Care Provider [phone] REASON FOR VISIT 3 month f/u Encounters Encounter Location Date Provider Diagnosis Isaias Suárez DO, [facility] [address] [place] [phone] 04/05/2024 Isaias Suárez PLAN OF TREATMENT No Information
--- OUTSIDE RECORDS SUMMARY | 2024-04-05 12:55 | XMS_ITS ---
Author Organization Isaias Suárez DO, FACP Address [address] [place], [place] [phone] Care Team Providers Care Whiskey Filterer Name Role Phone Isaias Suárez Primary Care Provider ALLERGIES No Known Allergies REASON FOR VISIT 3 week f/u, Follow up chronic obstructive pulmonary disease MEDICATIONS Medication SIG (Take, Route, Frequency, Duration) Notes Start Date End Date Status Calcium 600 + D 600-200 MG-UNIT 1 tablet Orally Once a day Active Cetirizine HCl 10 MG 1 tablet Orally Onc e a day Active Fluticasone-Salmeterol 250-50 MCG/ACT 1 puff Inhalation Twice a day for 30 days 01/04/2024 Active Albuterol Sulfate HFA 108 (90 Base) MCG/ACT 1 puff as needed Inhalation every 4 hrs 12/14/2023 Active Multivitamins 1 tablet Orally Once a day Active Fish Oil 1200 MG 1 capsule with a fern l Orally Once a day Active Simvastatin 40 MG 1 tablet in the even ing Orally Once a day 07/13/2023 Active SOCIAL HISTORY Tobacco Use: Social History Observation Description Date Details (start date - stop date) Former Smoker NA - NA Sex Assigned At : Social History Observation Description Sex Assigned At Unknown Tobacco Use/Smoking Question Answer Notes Patient is a former smoker How long has it been since y ou last smoked? 5-10 years Additional Findings: Tobacco Non-User Fo rmer smoker, currently using no form of tobacco Alcohol Screen Question Answer Notes Did you have a drink contain ing alcohol in the past year? Yes How often did you have a dri nk containing alcohol in the past year? 4 or more times a week (4 points) How many drinks did you have on a typical day when you were drinking in the past year? 3 or 4 drinks (1 point) How often did you have 6 or more drinks on one occasion in the past year? Never (0 point) Points 5 Interpretation Positive VITAL SIGNS BMI 30.85 kg/m2 01/04/2024 Blood pressure systolic 114 mm Hg 01/04/20 24 Blood pressure diastolic 56 mm Hg 024 Height 61.5 in 01/04/2024 Weight 166 lbs 01/04/2024 Encounters Encounter Location Date Provider Diagnosis Isaias Suárez DO, [address] [phone] 01/04/2024 Isaias Suárez COPD (chronic obstru ctive pulmonary disease) J44.9 and Hypercholesterolemia E78.00 ASSESSMENTS Encounter Date Diagnosis Assessment Notes Treatment Notes Treatment Clinical Notes 01/04/2024 COPD (chronic obstru ctive pulmonary disease) (ICD-10 - J44.9) 01/04/2024 Hypercholesterolemia (ICD-10 - E78.00) PLAN OF TREATMENT Medication Medication Name Sig Start Date Stop Date Notes Calcium 600 + D 600-200 MG-UNIT 1 tablet Orally Once a day Cetirizine HCl 10 MG 1 tablet Orally Once a day Fluticasone-Salmeterol 250-5 0 MCG/ACT 1 puff Inhalation Twice a day for 30 days 01/04/2024 Albuterol Sulfate HFA 108 (9 0 Base) MCG/ACT 1 puff as needed Inhalation every 4 hrs 12/14/2023 Multivitamins 1 tablet Orally Once a day Fish Oil 1200 MG 1 capsule with a fern l Orally Once a day Simvastatin 40 MG 1 tablet in the even ing Orally Once a day 07/13/2023 Next Appt Details Follow Up: 3 Months, Reason: follow up visit Progress Notes * Examination Category Sub-Category Detail Notes General Examination GENERAL APPEARANCE: in no ac [place] distress, well developed, well nourished HEAD: normocephalic, atrau matic HEART: no murmurs, regular rate and rhythm, S1, S2 normal LUNGS: end expiratory wheez ing ABDOMEN: normal, bowel sounds present, soft, nontender, nondistended SKIN: warm and dry EXTREMITIES: no edema PSYCH: alert, oriented, cog nitive function intact
--- OUTSIDE RECORDS SUMMARY | 2024-04-05 12:55 | XMS_ITS ---
Author Organization Isaias Suárez DO, FACP Address [address] [place], [place] [phone] Care Team Providers Care Golf Coach Name Role Phone KaminiIsaias dong Primary Care Provider ALLERGIES No Known Allergies REASON FOR VISIT 1 month f/u, shortness of breath on exertion MEDICATIONS Medication SIG (Take, Route, Frequency, Duration) Notes Start Date End Date Status Albuterol Sulfate HFA 108 (90 Base) MCG/ACT 1 puff as needed Inhalation every 4 hrs for 30 days 12/14/2023 Active predniSONE 10 MG 4 tablets with food x 4 days, 3 for 3, 2 for 2, 1 for 1 Orally Once a day for 10 days 12/14/2023 Active Cetirizine HCl 10 MG 1 tablet Orally Onc e a day Active Simvastatin 40 MG 1 tablet in the even ing Orally Once a day 07/13/2023 Active Fish Oil 1200 MG 1 capsule with a fern l Orally Once a day Active Calcium 600 + D 600-200 MG-UNIT 1 tablet Orally Once a day Active Multivitamins 1 tablet Orally Once a day Active SOCIAL HISTORY Tobacco Use: Social History [...] Points 5 Interpretation Positive VITAL SIGNS BMI 30.48 kg/m2 12/14/2023 Blood pressure systolic 128 mm Hg 12/14/19 24 Blood pressure diastolic 62 mm Hg 024 Height 61.5 in 12/14/2023 Weight 164 lbs 12/14/2023 Encounters Encounter Location Date Provider Diagnosis Isaias Suárez DO, [address] [phone] 12/14/2023 Isaias Kamini COPD (chronic obstru ctive pulmonary disease) J44.9 and Hypercholesterolemia E78.00 ASSESSMENTS Encounter Date Diagnosis Assessment Notes Treatment Notes Treatment Clinical Notes 12/14/2023 COPD (chronic obstru ctive pulmonary disease) (ICD-10 - J44.9) 12/14/2023 Hypercholesterolemia (ICD-10 - E78.00) PLAN OF TREATMENT Medication Medication Name Sig Start Date Stop Date Notes Albuterol Sulfate HFA 108 (9 0 Base) MCG/ACT 1 puff as needed Inhalation every 4 hrs for 30 days 12/14/2023 predniSONE 10 MG 4 tablets with food x 4 days, 3 for 3, 2 for 2, 1 for 1 Orally Once a day for 10 days 12/14/2023 Cetirizine HCl 10 MG 1 tablet Orally Once a day Simvastatin 40 MG 1 tablet in the even ing Orally Once a day 07/13/2023 Fish Oil 1200 MG 1 capsule with a fern l Orally Once a day Calcium 600 + D 600-200 MG-UNIT 1 tablet Orally Once a day Multivitamins 1 tablet Orally Once a day Next Appt Details Follow Up: 3 Weeks, Reason: follow up visit Progress Notes * Examination Category Sub-Category Detail Notes General Examination GENERAL APPEARANCE: in no ac [place] distress, well developed, well nourished HEAD: normocephalic, atrau matic HEART: no murmurs, regular rate and rhythm, S1, S2 normal LUNGS: end expiratory wheez ing, diminished breath sounds at the bases ABDOMEN: normal, bowel sounds present, soft, nontender, nondistended SKIN: warm and dry EXTREMITIES: no edema PSYCH: alert, oriented, cog nitive function intact
== END 2024-04-05 11:42 | disposition home or self-care (01) ==
LOC: HO.HMCSH 11:04
PROVIDERS: PCP Internal Medicine; Visit Provider Physician Assistant Medical
DX: R60.0 Localized edema (principal); N60.19 Diffuse cystic mastopathy of unspecified breast; E78.00 Pure hypercholesterolemia, unspecified; J44.9 Chronic obstructive pulmonary disease, unspecified; F32.9 Major depressive disorder, single episode, unspecified; F41.9 Anxiety disorder, unspecified; M85.80 Other specified disorders of bone density and structure, unspecified site; K50.90 Crohn's disease, unspecified, without complications

== ENCOUNTER → 2024-04-05 11:04 | Outpatient (BNVA) | payer MEDICARE, SELFPAY | PROVIDERS: PCP Internal Medicine; Visit Provider Physician Assistant Medical | DX: R60.0 Localized edema (principal); N60.19 Diffuse cystic mastopathy of unspecified breast; E78.00 Pure hypercholesterolemia, unspecified; J44.9 Chronic obstructive pulmonary disease, unspecified; F32.9 Major depressive disorder, single episode, unspecified; M85.80 Other specified disorders of bone density and structure, unspecified site; K50.90 Crohn's disease, unspecified, without complications | CPT/HCPCS: 99202 ==

== ENCOUNTER 2024-04-13 13:17 | Outpatient (REF) | payer MEDICARE, SELFPAY ==
--- NOTE | ~2024-04-13 | MM_ITS ---
EXAMINATION: MM DIAGNOSTIC DIGITAL BREAST TOMOSYNTHESIS, RIGHT Limited right ultrasound. CLINICAL INFORMATION: Call back from screening for focal asymmetry in the upper central right breast. COMPARISON: Mammography: Comparison is made with available prior examinations. TECHNIQUE: Digital breast tomosynthesis is performed in both the craniocaudal and mediolateral oblique views along with computer-aided detection (CAD). Synthesized 2D images are generated from the tomosynthesis. Limited right breast ultrasound. FINDINGS: The breasts are heterogeneously dense, which may obscure small masses (ACR BI-RADS breast composition Category c). Previously seen focal asymmetry in the upper central breast does not persist on additional imaging projections and likely represented overlapping breast tissue. Dystrophic calcifications again seen. There are no significant masses, abnormal calcifications, or other abnormalities. Targeted color Doppler ultrasound scanning from 9- 2:00 in the right breast superiorly demonstrates normal fibroglandular breast tissue. There is no sonographic abnormality. MM/MM tomosynthesis added views R IMPRESSION: No mammographic or sonographic evidence of malignancy. ASSESSMENT: BI-RADS BI-RADS 2 - Benign Findings RECOMMENDATION: 1 year F/U Results were provided to the patient at time of visit by the technologist. This patient's information was entered into a reminder system with a target due date for their next mammogram. Electronically signed by: Shannen Arambula DO 04/13/2024 02:16 PM FARZANA
--- OUTSIDE RECORDS SUMMARY | 2024-04-13 14:11 | XMS_ITS ---
Author Organization Isaias Suárez DO, FACP Address [address] [place], [place] [phone] Care Team Providers Care Disc Pad Grinder Name Role Phone Isaias Suárez Primary Care Provider REASON FOR VISIT 3 month f/u Encounters Encounter Location Date Provider Diagnosis Isaias Suárez DO, [facility] [address] [place] [phone] 04/05/2024 Isaias Suárez PLAN OF TREATMENT No Information
--- OUTSIDE RECORDS SUMMARY | 2024-04-13 14:11 | XMS_ITS ---
Author Organization Isaias Suárez DO, FACP Address [address] [place], [place] [phone] Care Team Providers Care Tool Storage Attendant Name Role Phone KaminiIsaias dong Primary Care [...] Location Date Provider Diagnosis Isaias Suárez DO, [address] [phone] 12/14/2023 Isaias Kamini COPD (chronic obstru ctive [...] General Examination GENERAL APPEARANCE: in no ac [place] distress, well developed, well nourished HEAD: normocephalic, atrau matic HEART: no murmurs, regular rate and rhythm, S1, S2 normal LUNGS: end expiratory wheez ing, diminished breath sounds at the bases ABDOMEN: normal, bowel sounds present, soft, nontender, nondistended SKIN: warm and dry EXTREMITIES: no edema PSYCH: alert, oriented, cog nitive function intact
--- OUTSIDE RECORDS SUMMARY | 2024-04-13 14:11 | XMS_ITS ---
Author Organization Isaias Suárez DO, FACP Address [address] [place], [place] [phone] Care Team Providers Care Assembling Fabricator Name Role Phone Isaias Suárez Primary Care [...] Location Date Provider Diagnosis Isaias Suárez DO, [address] [phone] 01/04/2024 Isaias Suárez COPD (chronic obstru ctive [...] General Examination GENERAL APPEARANCE: in no ac [place] distress, well developed, well nourished HEAD: normocephalic, atrau matic HEART: no murmurs, regular rate and rhythm, S1, S2 normal LUNGS: end expiratory wheez ing ABDOMEN: normal, bowel sounds present, soft, nontender, nondistended SKIN: warm and dry EXTREMITIES: no edema PSYCH: alert, oriented, cog nitive function intact
== END 2024-04-13 13:18 | disposition home or self-care (01) ==
LOC: HO.MAMMO 13:17
PROVIDERS: PCP Internal Medicine; Visit Provider Internal Medicine
DX: N64.89 Other specified disorders of breast (principal)
CPT/HCPCS: 76642; 77061; 77065

== ENCOUNTER → 2024-04-13 13:30 | Outpatient (BNV) | payer MEDICARE, SELFPAY | PROVIDERS: PCP Internal Medicine; Visit Provider Internal Medicine | DX: N64.89 Other specified disorders of breast (principal) | CPT/HCPCS: 76642; 77065; G0279 ==

== ENCOUNTER 2024-04-17 08:31 | Outpatient (REF) | payer MEDICARE, SELFPAY ==
--- OUTSIDE RECORDS SUMMARY | 2024-04-17 08:54 | XMS_ITS ---
Author Organization Isaias Suárez DO, FACP Address [address] [place], [place] [phone] Care Team Providers Care Differential Tester Name Role Phone KaminiIsaias dong Primary Care Provider [phone] ALLERGIES No Known Allergies REASON FOR VISIT [...] Date Provider Diagnosis Isaias Suárez DO, [address] [phone] 12/14/2023 Isaias Kamini COPD (chronic obstru ctive [...] General Examination GENERAL APPEARANCE: in no ac [place] distress, well developed, well nourished HEAD: normocephalic, atrau matic HEART: no murmurs, regular rate and rhythm, S1, S2 normal LUNGS: end expiratory wheez ing, diminished breath sounds at the bases ABDOMEN: normal, bowel sounds present, soft, nontender, nondistended SKIN: warm and dry EXTREMITIES: no edema PSYCH: alert, oriented, cog nitive function intact
--- OUTSIDE RECORDS SUMMARY | 2024-04-17 08:54 | XMS_ITS ---
Author Organization Isaias Suárez DO, FACP Address [address] [place], [place] [phone] Care Team Providers Care Materials Scheduler Name Role Phone Isaias Suárez Primary Care [...] Location Date Provider Diagnosis Isaias Suárez DO, [address] [phone] 01/04/2024 Isaias Suárez COPD (chronic obstru ctive [...]
--- OUTSIDE RECORDS SUMMARY | 2024-04-17 08:54 | XMS_ITS ---
Author Organization Isaias Suárez DO, FACP Address [address] [place], [place] [phone] Care Team Providers Care Loan Counselor Name Role Phone Isaias Suárez Primary Care Provider [phone] REASON FOR VISIT 3 month f/u Encounters Encounter Location Date Provider Diagnosis Isaias Suárez DO, [facility] [address] [place] [phone] 04/05/2024 Isaias Suárez PLAN OF TREATMENT No Information
[2024-04-17 10:27] LABS: MANUAL DIFF FLAG NO
[2024-04-17 10:44] LABS: Basophils Percent Auto 0.3 % (0-2); Eosinophils Absolute Auto 0.1 X10*3/uL (0.0-0.4); Eosinophils Percent Auto 1.3 % (0-4); Hematocrit 43.5 % (37.0-47.0); Hemoglobin 13.9 g/dl (12.0-16.0); Imm Gran Abs Auto 0.01 X10*3/uL (0.00-0.03); Imm Gran Pct Auto 0.2 % (0.0-0.4); Lymphocytes Absolute Auto 1.7 X10*3/uL (1.2-4.9); Mean Corpuscular Hemoglobin 31.6 pg (27.0-33.0); Mean Corpuscular Volume 98.9 fL (80.0-98.0); Mean Platelet Volume 11.2 fL (9.4-12.3); Monocytes Absolute Auto 0.4 X10*3/uL (0.1-1.2); Monocytes Percent Auto 5.8 % (2-11); Neutrophils Absolute Auto 3.8 x10*3/uL (2.0-8.3); Neutrophils Percent Auto 63.4 % (45-73); Platelet Count 220 X10*3/uL (160-400); Red Cell Distribution Width 12.3 % (11.0-16.0)
[2024-04-17 11:03] LABS: Estimated Average Glucose 111 mg/dL; Hemoglobin A1c % 5.5 % (<6.0); Total Hemoglobin (HGBA1C) 3643.2753 umol/L
[2024-04-17 11:34] LABS: Alanine Aminotransferase 15 U/L (0-31); Albumin Level 4.1 g/dL (3.5-5.0); Alkaline Phosphatase 71 U/L (39-117); Anion Gap 13 (12-20); Aspartate Amino Transferase 22 U/L (5-31); Bilirubin Direct 0.3 mg/dL (0.0-0.5); Bilirubin Total 0.8 mg/dL (0.0-1.0); Blood Urea Nitrogen 9 mg/dL (9-16); Calcium 9.4 mg/dL (8.4-10.2); Carbon Dioxide 25 mmol/L (22-29); Chloride 107 mmol/L (96-108); Cholesterol 148 mg/dL (<200); Estimated Glomerular Filt Rate > 60; Glucose Fasting 112 mg/dL (60-99); HDL Cholesterol 62 mg/dL (>40); LDL Cholesterol Calculated 63 mg/dL (<100); Magnesium 2.1 mg/dL (1.6-2.6); Phosphorus 3.8 mg/dL (2.7-4.5); Potassium 3.4 mmol/L (3.3-5.1); Sodium 142 mmol/L (135-145); TSH reflex Free T4 1.71 uIU/mL (0.32-4.0); Total Protein 7.3 g/dL (6.5-8.0); Triglycerides 119 mg/dL (<150); Vitamin D 25-OH Total 50.4 ng/mL (>30)
[2024-04-17 11:36] LABS: Parathyroid Hormone Intact 78.5 pg/mL (8.7-77.1)
[2024-04-17 11:38] LABS: Folate 14.2 ng/mL (> or = 4.0); Vitamin B12 633 pg/mL (200-900)
[2024-04-23 11:19] LABS: Vitamin B1 17 nmol/L (8-30)
== END 2024-04-17 08:32 | disposition home or self-care (01) ==
LOC: HO.HMGCLDS 08:31
PROVIDERS: PCP Internal Medicine; Visit Provider Physician Assistant Medical
DX: Z00.00 Encounter for general adult medical examination without abnormal findings (principal); Z13.1 Encounter for screening for diabetes mellitus; Z13.29 Encounter for screening for other suspected endocrine disorder; Z13.220 Encounter for screening for lipoid disorders
CPT/HCPCS: 36415; 80053; 80061; 80076; 82248; 82306; 82607; 82746; 83036; 83735; 83970; 84100; 84425; 84443; 85025; 86140

== ENCOUNTER 2024-05-09 11:01 | Outpatient (AMB) | payer MEDICARE, SELFPAY ==
--- NOTE | 2024-05-09 11:04 | MHC.OFFVIS ---
Vital Signs 05/09/24 11:05 Height 5 ft 1 in Weight 160 lb 4.417 oz BMI 30.3 BP 126/62 Blood Pressure Location Rt brachial Position Sitting Pulse 66 Pulse Source Pulse Oximeter Pulse Oximetry (%) 97 Oxygen Delivery Method Room Air Intake Visit Reasons: Other specified abnormal findings of blood chem Intake Note: New patient internally referred by PCP for other specified abnormal findings of blood chemistry Tube Trailer Filler Required: No Accompanied by: Self / Same As Patient Allergies No Known Allergies Allergy (Verified 05/09/24 11:07) Medication List - Last Reconciled 05/09/24 by Isaias Rojas MD albuterol sulfate 90 mcg/actuation 1 inh inhalation QID calcium carbonate-vitamin D2 600 mg calcium- 200 unit 1 tab PO DAILY cetirizine 10 mg PO DAILY fluoxetine 20 mg PO QAM 90 days fluticasone propion-salmeterol 250-50 mcg/dose 1 inh inhalation BID multivitamin 1 tab PO DAILY omega 8-eoq-won-fish oil 1,200 (144-216) mg (Fish Oil) 1 cap PO BID simvastatin 40 mg PO BEDTIME HPI Comments Details: 78 YO F who is seen in consultation at the request of PCP for increased PTH . The patient is an 78-year-old female presenting with an elevated parathyroid hormone level. She has a history of osteopenia without a formal diagnosis of osteoporosis. There is no prior documentation of parathyroid hormone measurements until now. She denies symptoms such as kidney stones and does not take medications such as hydrochlorothiazide that could affect calcium levels. The patient denies use of lithium or Biotin. The patient's osteoporosis-related testing is outdated, with the last bone density evaluation approximately four years prior. No family history of parathyroid disorders or hypercalcemia was reported. Currently using Calcium supplement 600 mg . Takes 200 IU of Vitamin D daily. Not Currently using HCTZ. Kidney stones: No Osteoporosis: No History of [place] use: No Biotin use: No Family history of high calcium or kidney stones: No Renal imaging: No DXA: Labs: [facility], [facility] Medical History (Updated 04/17/24 @ 14:14 by Evelyn Rose PA-C) Elevated parathyroid hormone History of mammogram (~02/01/24) Peripheral edema Fibrocystic breast disease Mild hypercholesterolemia Lumbar radiculopathy Osteopenia Crohn's disease Anxiety Depression COPD (chronic obstructive pulmonary disease) Elevated cholesterol Surgical History History of colonoscopy (~08/12/18) Hx of appendectomy Hx of tubal ligation Hx of wisdom tooth extraction Hx of tonsillectomy Family History Mother Stroke Colorectal cancer Father Liver cancer Social History Patient Tobacco Use Status: Former Tobacco user Tobacco use type: Cigarette Physical Exam Vital Signs: BMI result Body Mass Index 30.3 Assessment & Plan Assessment & Plan (1) Elevated parathyroid hormone: Code(s): R79.89 - Other specified abnormal findings of blood chemistry Category: Medical Plan: This is an 78-year-old white female with a history of elevated PTH levels. Could be spurious elevation of PTH from laboratory vs normocalcemic hyperparathyroidism . Will repeat PTH and calcium at outside lab ([facility]) before proceeding with further workup. If PTH is normal an outside lab, no need for further endocrine workup or follow up at this point 1. Elevated Parathyroid Hormone Level: Further assessment through external lab testing is indicated to confirm the elevated parathyroid hormone. This level is currently not associated with hypercalcemia or reported symptoms like kidney stones, suggesting further observation and patient-reported labs prior to invasive procedures. The patient had an opportunity to ask questions regarding treatment plan. The patient expressed understanding and agreement with the above treatment plan. Patient was informed and verbally consented to the use of an ambient scribe for clinic note documentation during this visit. - Schedule an external lab test for calcium levels and parathyroid hormone as ordered. - Arrange for a repeat bone density scan with PCP to reassess osteopenia status. - Continue the current management regime for COPD, monitor inhaler usage to manage hoarseness. - Contact the office if lab results are abnormal or not received within two weeks. - Orders: Orders Calcium Today R79.89 - Other specified abnormal findings of blood chemistry Parathyroid Hormone Intact Today R79.89 - Other specified abnormal findings of blood chemistry Coding Level of Care Code New Pt Level 4 (52174) Diagnoses Elevated parathyroid hormone R79.89
[2024-05-09 11:05] VITALS: BP 126/62; PULSE 66; O2SAT 97; BMI 30.3
== END 2024-05-09 11:36 | disposition home or self-care (01) ==
LOC: HO.ENCR 11:01
PROVIDERS: PCP Internal Medicine; Visit Provider Internal Medicine Endocrinology, Diabetes & Metabolism
DX: R79.89 Other specified abnormal findings of blood chemistry (principal)
CPT/HCPCS: 99204

== ENCOUNTER → 2024-05-09 11:01 | Outpatient (BNVA) | payer MEDICARE, SELFPAY | PROVIDERS: PCP Internal Medicine; Visit Provider Internal Medicine Endocrinology, Diabetes & Metabolism | DX: R79.89 Other specified abnormal findings of blood chemistry (principal) | CPT/HCPCS: 99202 ==

== ENCOUNTER 2024-12-05 11:05 | Outpatient (AMB) | payer MEDICARE, SELFPAY ==
[2024-12-05 11:07] VITALS: BP 116/62; PULSE 71; RESP 16; TEMP 36.3; O2SAT 96; BMI 29.7
--- NOTE | 2024-12-05 11:07 | A.OFFPC_ITS ---
Vital Signs 12/05/24 11:07 Height 5 ft 1 in Weight 157 lb BMI 29.7 BP 116/62 Blood Pressure Location Rt brachial Position Sitting Respiration 16 Pulse 71 Pulse Source Pulse Oximeter Temp 97.4 F Temp Source Temporal Artery Scan Pulse Oximetry (%) 96 Oxygen Delivery Method Room Air Intake Visit Reasons: physical Toolsmith Required: No Accompanied by: Self / Same As Patient Allergies No Known Allergies Allergy (Verified 12/05/24 11:54) Medication List - Last Reconciled 12/05/24 by Evelyn Rose PA-C albuterol sulfate 90 mcg/actuation 1 inh inhalation QID calcium carbonate-vitamin D2 600 mg calcium- 200 unit 1 tab PO DAILY cetirizine 10 mg PO DAILY cyclobenzaprine 5 mg PO Q8H fluoxetine 20 mg PO QAM 90 days fluticasone propion-salmeterol 250-50 mcg/dose ([place] Inhub) 1 inh inhalation BID fluticasone propion-salmeterol 250-50 mcg/dose 1 inh inhalation BID multivitamin 1 tab PO DAILY omega 2-vul-gma-fish oil 1,200 (144-216) mg (Fish Oil) 1 cap PO BID simvastatin 40 mg PO BEDTIME Tobacco use date assessed: 12/05/24 Dental Screening Dental Screen Date: 12/05/24 Did you have a dental visit in the last 12 months?: No Did you have a dental problem in the last 6 months where you did not have access to dental care?: No Was dental information given to patient?: Patient has dentist HPI physical HPI Details The patient is an 79-year-old female presenting for an annual physical exam. The patient reports a history of sciatica, which had a significant flare-up in July, rendering her immobile for a period. Currently, the condition is manageable with acetaminophen, although the medication's effect lasts only four hours instead of the expected eight. She denies any recent falls or changes in bowel or bladder function. The patient has a history of lumbar radiculopathy, initially diagnosed in 2021, with symptoms including pain radiating from the left lower back to the buttocks and legs. She has not had any imaging studies of her back previously but has undergone bone density testing, which indicated osteopenia. The patient experiences urinary urgency, a condition she has had for many years. She reports no urinary incontinence or other urinary symptoms. Her past medical history includes prediabetes, with recent blood work indicating slightly elevated fasting glucose levels. She is advised to reduce her intake of sugars and carbohydrates to manage this condition. Social History - Family Status: The patient had a daugh nacho who at age 3 due to encephalitis. - Exercise: The patient mentioned using an exercise step for stepping exercises. [facility] Medical History (Updated 12/05/24 @ 12:01 by Evelyn Rose PA-C) Prediabetes Urinary urgency Annual physical exam Dysuria Hip pain Sciatica Lower back pain Elevated parathyroid hormone History of mammogram (~04/13/24) Peripheral edema Fibrocystic breast disease Mild hypercholesterolemia Lumbar radiculopathy Osteopenia Crohn's disease Anxiety Depression COPD (chronic obstructive pulmonary disease) Elevated cholesterol Surgical History History of colonoscopy (~08/12/18) Hx of appendectomy Hx of tubal ligation Hx of wisdom tooth extraction Hx of tonsillectomy Family History Mother Stroke Colorectal cancer Father Liver cancer Social History Housing: House Patient Tobacco Use Status: Former Tobacco user Tobacco use type: Cigarette service: No Current occupational status: retired Cognitive needs: No Hearing needs: No Vision needs: Yes (reading glasses) Questionnaire PHQ-9 Over the last 2 weeks, how often have you been bothered by any of the following problems? 1. Little interest or pleasure in doing things: not at all 2. Feeling down, depressed, or hopeless: not at all 3. Trouble falling or staying asleep, or sleeping too much: not at all 4. Feeling tired or having little energy: not at all 5. Poor appetite or overeating: not at all 6. Feeling bad about yourself - or that you are a failure or have let yourself or your family down: not at all 7. Trouble concentrating on things, such as reading the newspaper or watching television: not at all 8. Moving or speaking so slowly that other people could have noticed. Or the opposite - being so fidgety or restless that you have been moving around a lot more than usual: not at all 9. Thoughts that you would be better off or of hurting yourself in some way: not at all Total score: 0 Depression Screening Interpretation: Negative Depression Screening Done: Yes 53902 - PHQ-9 Billing: Yes Source: Developed by Drs. Isaias Bhandari, Shelby Schofield, Alex Garcia and colleagues, with an educational madelyn from [employer]. Thrive Questionnaire Date Thrive assessed: 12/05/24 I am a: Patient What is your living situation today?: I have a steady place to live Within the past 12 months, did the food you bought not last and you didn't have the money to get more?: Never true Within the past 12 months, did you worry whether your food would run out before you got money to buy more?: Never true Do you have trouble paying for medicines?: No Do you have trouble getting transportation to medical appointments?: No Do you have trouble paying your heating and electricity bill?: No Do you have trouble taking care of your child, family member or friend?: No Do you have trouble with day-to-day activities such as bathing, preparing meals, shopping, managing finances, etc.?: Yes Are you currently unemployed and looking for a job?: No Are you interested in more education?: No Please select the resources that you would like help with: None THRIVE Score: 0 AUDIT C Alcohol Use Questionnaire (AUDIT-C) 1. How often do you have a drink containing alcohol?: Never 3. How often do you have six or more drinks on one occasion?: Never Total Score: 0 Score Reviewed/Action Taken: No TIERRA-7 AMB Questionnaire TIERRA-7 Date TIERRA - 7 assessed: 12/05/24 Feeling nervous, anxious, or on edge: 0 = Not at all Not being able to stop or control worryin = Not at all Worrying too much about different things: 0 = Not at all Trouble relaxin = Not at all Being so restless that it is hard to sit still: 0 = Not at all Becoming easily annoyed or irritable: 0 = Not at all Feeling afraid as if something awful might happen: 0 = Not at all Total TIERRA-7 score (0-4 normal; 5-9 mild; 10-14 moderate; 15-21 severe): 0 Source: Developed by Drs. Isaias Bhandari, Shelby Schofield, Alex Garcia and colleagues, with an educational madelyn from [employer]. TIERRA-7 Assessment Billing TIERRA-7 Assessment Tool: TIERRA-7 Assessment 17199 Review of Systems Const Details: - Musculoskeletal: Reports sciatica flare-up in July, manageable with acetaminophen; denies recent falls. - Neurological: Reports pain radiating from left lower back to buttocks and legs; denies numbness or weakness. - Genitourinary: Reports urinary urgency; denies incontinence. - Endocrine: Reports prediabetes; advised to reduce sugar and carbohydrate intake. All systems reviewed & are unremarkable except as noted in HPI and below Physical exam (Primary Care) Vital Signs: Last Vital Signs Temp 97.4 F 12/05/24 11:07 Pulse 71 12/05/24 11:07 Resp 16 12/05/24 11:07 BP 116/62 12/05/24 11:07 Pulse Ox 96 12/05/24 11:07 Oxygen Delivery Method Room Air 12/05/24 11:07 Care Plan Goal for BP management: <140/90 at Goal BMI result Body Mass Index 29.7 BMI Assessment/Plan discussion: High BMI High, discussed plan: lifestyle, weight reduction, dietary, physical activity, alcohol moderation and other Tobacco/Smoking Status: Tobacco use Status Tobacco use date assessed 12/05/24 12/05/24 11:09 Patient Tobacco Use Status Former Tobacco user 12/05/24 11:09 Tobacco use type Cigarette 12/05/24 11:09 PHQ-9: PHQ-9 Score PHQ-9: Total score 0 12/05/24 11:24 Depression Screening Interpretation: Negative Thrive Assessment: Date of Thrive Assessment Date Thrive assessed 12/05/24 12/05/24 11:24 Const Other: Appearance: Alert. Oriented X3. No acute distress. Head: Normal external exam. Normocephalic. Atraumatic. Eyes: Pupils are equal, round, and reactive to light. Extraocular movements intact. Conjunctiva and sclera normal. Eyelids normal. Ears: External auditory canal normal. Tympanic membranes normal. Throat: Pharynx normal. Uvula midline. Moist mucous membranes. Neck: Normal inspection. Neck supple. Full range of motion. No adenopathy. Thyroid Normal. No meningeal signs. No neck mass noted. Cardiovascular: Normal heart rate and rhythm. Heart sound normal. No murmurs noted. Pulses normal throughout. Respiratory: No respiratory distress. Painless inspiration. Breath sounds normal. No wheezes/rales/rhonchi noted. Chest nontender. No accessory muscle usage noted or decreased air movement noted. Abdomen: Soft and nontender. Bowel sounds normal in all 4 quadrants. No distention noted. No organomegaly noted. No visible injury noted. Back: No costovertebral angle tenderness. Full range of motion noted. Reports a history of sciatica flare-up in July, currently manageable with acetaminophen. Pain starts on the left side of the back, goes down into the buttocks and legs. Skin: Skin warm and dry. Normal skin color. Normal skin turgor. No rashes/lesions/lacerations noted. Multiple birthmarks present. A mole on the throat area was previously evaluated by a web marketing assistant and deemed non- suspicious. Extremities: No lower extremity edema. Extremities exhibit normal range of motion. Extremities nontender. No pain in the calves upon palpation. Neuro: Oriented X 3. No motor deficit. No sensory deficit. Reflexes normal. Results Reviewed Results Reviewed: - Labs: CBC normal, no anemia; fasting glucose slightly elevated indicating prediabetes; liver enzymes normalized; cholesterol levels within normal limits. Coding Level of Care Code Est Pt Level 4 (61881) Est Pt Prev Care >65y(63420) Diagnoses Annual physical exam Z00.00 Sciatica M54.30 Lumbar radiculopathy M54.16 Osteopenia M85.80 Urinary urgency R39.15 Prediabetes R73.03 Additional Codes PHQ-9 - 26391 - PHQ-9 Billing: Yes ([id number]) TIERRA-7 Assessment Billing - TIERRA-7 Assessment Tool: TIERRA-7 Assessment 27125 ([id number]) Time Spent (min) 50 Assessment & Plan Assessment & Plan (1) Annual physical exam: Code(s): Z00.00 - Encounter for general adult medical examination without abnormal findings Category: Medical (2) Sciatica: Code(s): M54.30 - Sciatica, unspecified side Category: Medical Plan: The patient will continue using acetaminophen for pain management, although its duration of effect is shorter than expected. Physical therapy is recommended to prevent future flare-ups. (3) Lumbar radiculopathy: Code(s): M54.16 - Radiculopathy, lumbar region Category: Medical Plan: An x-ray of the lumbar spine, hips, and pelvis will be ordered to assess for any underlying issues. A muscle relaxant, Flexeril, will be prescribed to manage severe pain episodes. (4) Osteopenia: Code(s): M85.80 - Other specified disorders of bone density and structure, unspecified site Category: Medical Plan: A bone scan will be scheduled to evaluate the current status of bone density. (5) Urinary urgency: Code(s): R39.15 - Urgency of urination Category: Medical Plan: A urinalysis will be conducted to rule out any bacterial infection. (6) Prediabetes: Code(s): R73.03 - Prediabetes Category: Medical Plan: The patient is advised to reduce sugar and carbohydrate intake to manage prediabetes. Plan Plan Patient was informed and verbally consented to the use of an ambient scribe for clinic note documentation during this visit. 1. Sciatica The patient will continue using acetaminophen for pain management, although its duration of effect is shorter than expected. Physical therapy is recommended to prevent future flare-ups. 2. Lumbar Radiculopathy An x-ray of the lumbar spine, hips, and pelvis will be ordered to assess for any underlying issues. A muscle relaxant, Flexeril, will be prescribed to manage severe pain episodes. 3. Osteopenia A bone scan will be scheduled to evaluate the current status of bone density. 4. Urinary Urgency A urinalysis will be conducted to rule out any bacterial infection. 5. Prediabetes The patient is advised to reduce sugar and carbohydrate intake to manage prediabetes. During the visit, we discussed the management of sciatica with acetaminophen and the potential benefit of physical therapy to prevent future episodes. For lumbar radiculopathy, I recommended obtaining x-rays of the lumbar spine, hips, and pelvis to rule out any structural issues. I prescribed Flexeril for severe pain management. We also discussed the need for a bone scan to monitor osteopenia and a urinalysis to check for urinary infections. The patient was advised to reduce sugar and carbohydrate intake to manage prediabetes. Orders: Orders XR hips LARISSA min 3V Today M25.559 - Pain in unspecified hip, M54.30 - Sciatica, unspecified side, M54.50 - Low back pain, unspecified XR pelvis 1-2V Today M25.559 - Pain in unspecified hip, M54.30 - Sciatica, unspecified side, M54.50 - Low back pain, unspecified XR DEXA axial skeleton Today M81.0 - Age-related osteoporosis without current p athological fracture PT Evaluation and Treatment Today M54.30 - Sciatica, unspecified side, M54.50 - Low back pain, unspecified XR lumbar spine 4V min Today M25.559 - Pain in unspecified hip, M54.30 - Sciatica, unspecified side, M54.50 - Low back pain, unspecified UA CC w/rflx Micro + Cult Today R30.0 - Dysuria Medications: New cyclobenzaprine 5 mg PO Q8H 30 tabs 3RF Patient Instructions: - Continue taking acetaminophen as needed for sciatica pain, but do not exceed the recommended dosage. - Consider starting physical therapy to help manage and prevent sciatica flare- ups. - Schedule and complete x-rays of the lumbar spine, hips, and pelvis as ordered. - Take Flexeril as prescribed for severe pain, following the dosage instructions carefully. - Undergo a bone scan to assess bone density. - Provide a urine sample for urinalysis to check for infections. - Reduce sugar and carbohydrate intake to manage prediabetes.
--- OUTSIDE RECORDS SUMMARY | 2024-12-05 13:22 | XMS_ITS | Clinical Summary ---
Author Organization [facility] Address [address] [place] [phone] Phone Care Team Providers Care Sample Patternmaker Name Role Phone Isaias Suárez DO Primary Care Provider Social History Tobacco Use Types Packs/Day Years Used Date Smoking Tobacco: Never Assessed Education Answer Date Recorded Are you interested in more education? Not on donald e 06/19/2022 Are you concerned about learning? Not on file 06/19/2022 No 06/19/2022 No 06/19/2022 Digital Access Answer Date Recorded No 07/18/2022 No 07/18/2022 No 07/18/2022 Reliable internet access at home? Not on file 07/18/2022 Device with a working camera? Not on file Comments Unknown Sex and Gender Information Value Date Recorded Sex Assigned at Not on file Legal Sex Female 10:10 PM EDT Gender Identity Not on file Sexual Orientation Not on file Plan of Treatment Health Maintenance Due Date Last Done Comments Adult Td,Tdap Booster 1945 DEPRESSION SCREENING 1955 ZOSTER VACCINES (1 of 2) 06/17/1993 OSTEOPOROSIS SCREENING INITIAL (ONE-TIME) 06/17/2008 PNEUMOCOCCAL VACCINES (50+ years) (2 of 2 - PPSV23) 08/26/2016 08/27/2015 RSV VACCINE (1 - 1-dose 75+ series) 06/17/2018 INFLUENZA VACCINE (#1) 2024 , 12/01/2018, 12/24/2017, Additional history exists COVID-19 VACCINE (3 - season) 2024 04/24/2020, 03/27/2020 HEPATITIS A VACCINES Aged Out No long er eligible based on patient's age to complete this topic HIB VACCINES Aged Out No longer eligi ble based on patient's age to complete this topic MENINGOCOCCAL VACCINES (ACWY) Aged Out No longer eligible based on patient's age to complete this topic MENINGOCOCCAL VACCINES (B) Aged Out N o longer eligible based on patient's age to complete this topic Medical Devices Not on file Insurance [facility] MEDICARE PPO BLUE REPLACEMENT [facility] MEDICARE PPO BLUE REPLACEMENT [facility] MEDICARE PPO BLUE REPLACEMENT [facility] MEDICARE PPO BLUE REPLACEMENT [facility] MEDICARE PPO BLUE REPLACEMENT [facility] MEDICARE PPO BLUE REPLACEMENT [facility] MEDICARE PPO BLUE REPLACEMENT [facility] MEDICARE PPO BLUE REPLACEMENT [facility] MEDICARE PPO BLUE REPLACEMENT Care Teams Sample Patternmaker Relationship Specialty Start Date End Date Isaias Suárez DO [address] [place] [id number] PCP - General 08/12/18 Additional Source Comments The information contained in this document represents components of the legal health record. It is not the complete legal health record.[facility]
== END 2024-12-05 11:57 | disposition home or self-care (01) ==
LOC: HO.HMCSH 11:05
PROVIDERS: PCP Internal Medicine; Visit Provider Physician Assistant Medical
DX: Z00.00 Encounter for general adult medical examination without abnormal findings (principal); R39.15 Urgency of urination; M54.32 Sciatica, left side; M54.16 Radiculopathy, lumbar region; M85.80 Other specified disorders of bone density and structure, unspecified site; R73.03 Prediabetes

== ENCOUNTER 2024-12-05 11:05 | Outpatient (REF) | payer MEDICARE, SELFPAY ==
[2024-12-05 17:33] LABS: Appearance Urine Clear; Glucose Urine UA Negative (Negative); PH 5.5 (5.0-9.0); Specific Gravity - Urine 1.025 (1.005-1.025); UMIC TRIGGER UACC YES
== END 2024-12-05 11:06 | disposition home or self-care (01) ==
LOC: HO.LAB 11:05
PROVIDERS: PCP Internal Medicine; Visit Provider Physician Assistant Medical
DX: Z00.00 Encounter for general adult medical examination without abnormal findings (principal); M54.30 Sciatica, unspecified side; M54.16 Radiculopathy, lumbar region; R39.15 Urgency of urination; R73.03 Prediabetes; M85.80 Other specified disorders of bone density and structure, unspecified site; M54.50 Low back pain, unspecified; M81.0 Age-related osteoporosis without current pathological fracture; R30.0 Dysuria; Z79.899 Other long term (current) drug therapy
CPT/HCPCS: 81001; 81003; 96127; 99212; 99397

== ENCOUNTER 2024-12-08 09:56 | Outpatient (REF) | payer MEDICARE, SELFPAY ==
--- NOTE | ~2024-12-08 | XR_ITS ---
EXAMINATION: XR BILATERAL HIPS CLINICAL INFORMATION: M54.50 - Low back pain, unspecified COMPARISON: None available. TECHNIQUE: AP and lateral views of each hip were obtained. FINDINGS: No fracture, dislocation, or suspicious bone lesion. There is normal alignment. There is a bone island in the intertrochanteric region of the left hip. There is very mild osteoarthrosis of both hip joints. There is gross preservation of the joint spaces. Normal femoral head contours without evidence of AVN. Normal acetabular coverage. Mild vascular calcifications in the soft tissues. XR/XR hips LARISSA min 3V IMPRESSION: 1. 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 No acute findings. Electronically signed by: Terrence Eden MD 12/08/2024 10:29 AM EDT
--- NOTE | ~2024-12-08 | XR_ITS ---
EXAMINATION: XR PELVIS CLINICAL INFORMATION: M54.50 - Low back pain, unspecified COMPARISON: None available. TECHNIQUE: AP view of the pelvis. FINDINGS: There is no fracture, dislocation, or suspicious bone lesion. There is a bone island in the left hip intertrochanteric region. There is normal alignment. The sacrum is intact. SI joints demonstrate mild degenerative changes. Hip joints demonstrate minimal degenerative changes. There are degenerative changes in the lower lumbar spine. Mild vascular calcifications noted in the soft tissues. XR/XR pelvis 1-2V IMPRESSION: No acute bony or soft tissue abnormality in the pelvis. Electronically signed by: Terrence Eden MD 12/08/2024 10:24 AM EDT
--- NOTE | ~2024-12-08 | XR_ITS ---
EXAMINATION: Lumbar spine 5 views. CLINICAL INDICATION: Low back pain. COMPARISON: None. TECHNIQUE: 5 views. FINDINGS: There is normal lumbar lordosis the vertebral heights and alignment is normal. There is loss of L4-5, L3-4, L2-3 disc heights with with degenerative vacuum disc phenomena, ventral and posterior spondylosis. On oblique views there is no pars defect or listhesis. No lytic or sclerotic process seen. There is mild L4-5 facet joint arthropathy and hypertrophy. The SI joints are symmetrical and normal. The paravertebral soft tissues are normal. XR/XR lumbar spine 4V min IMPRESSION: Degenerative disc changes with ventral spondylosis L2-3, L3-4 and L4-5 disc levels with vacuum disc phenomena Electronically signed by: Orlando Pollard MD 12/08/2024 10:33 AM EDT
--- OUTSIDE RECORDS SUMMARY | 2024-12-08 11:35 | XMS_ITS | Clinical Summary ---
Author Organization [facility] Address [address] [place] [phone] Phone Care Team Providers Care Shaker Plate Operator Name Role Phone Isaias Suárez DO Primary [...] topic Medical Devices Not on file Insurance [facility] MEDICARE PPO BLUE REPLACEMENT [facility] MEDICARE PPO BLUE REPLACEMENT [facility] MEDICARE PPO BLUE REPLACEMENT [facility] MEDICARE PPO BLUE REPLACEMENT [facility] MEDICARE PPO BLUE REPLACEMENT [facility] MEDICARE PPO BLUE REPLACEMENT [facility] MEDICARE PPO BLUE REPLACEMENT [facility] MEDICARE PPO BLUE REPLACEMENT [facility] MEDICARE PPO BLUE REPLACEMENT Care Teams Shaker Plate Operator Relationship Specialty Start Date End Date Isaias Suárez DO [address] [place] [id number] PCP - General 08/12/18 Additional Source Comments The information contained in this document represents components of the legal health record. It is not the complete legal health record.[facility]
== END 2024-12-08 09:57 | disposition home or self-care (01) ==
LOC: HO.HMGCLDS 09:56
PROVIDERS: PCP Internal Medicine; Visit Provider Physician Assistant Medical
DX: M54.50 Low back pain, unspecified (principal); M54.30 Sciatica, unspecified side; M25.559 Pain in unspecified hip
CPT/HCPCS: 72110; 72170; 73522

== ENCOUNTER → 2024-12-08 09:59 | Outpatient (BNV) | payer MEDICARE, SELFPAY | PROVIDERS: PCP Internal Medicine; Visit Provider Radiology Diagnostic Radiology | DX: M16.0 Bilateral primary osteoarthritis of hip (principal); M51.360 Other intervertebral disc degeneration, lumbar region with discogenic back pain only; M47.816 Spondylosis without myelopathy or radiculopathy, lumbar region; M47.896 Other spondylosis, lumbar region | CPT/HCPCS: 72110; 72170; 73522 ==

== ENCOUNTER 2025-02-13 11:15 | Outpatient (REF) | payer MEDICARE, SELFPAY ==
--- NOTE | ~2025-02-13 | MM_ITS ---
EXAMINATION: DXA BONE DENSITY AXIAL HISTORY: M81.0 - Age-related osteoporosis without current pathological fracture TECHNIQUE: [employer] Dual energy absorptiometry (DEXA) of the lumbar spine, total left hip, and femoral neck was performed. COMPARISON: Comparison is made with the prior examination dated 09/04/2010. FINDINGS: The bone mineral density of the lumbar spine is 0.945 g/cm2, corresponding to a T-score of -1.8, and a Z-score of -0.2. This is indicative of osteopenia. This represents a BMD change of 0.7% compared to the prior exam. This is not statistically significant. The bone mineral density of the left total hip is 0.783 g/cm2, corresponding to a T-score of -1.8, and a Z-score of .2. This is indicative of osteopenia. This represents a BMD change of -7.0% compared to the prior exam. This is statistically significant. The bone mineral density of the left femoral neck is 0.710 g/cm2, corresponding to a T-score of -2.4, and a Z-score of -0.3. This is indicative of osteopenia. This represents a BMD change of -6.5% compared to the prior exam. FRACTURE RISK: The FRAX index suggests a ten year probability of major osteoporotic fracture of 17.8%, and of hip fracture 6.1%. MM/XR DEXA axial skeleton IMPRESSION: Based on bone mineral density, and according to World Health Organization (WHO) criteria, the diagnosis is consistent with osteopenia. Statistically, 68% of repeat scans fall within 1 SD (+/- 0.010 g/cm2 for AP spine L1-L4) and 1 SD (+/- 0.012 g/cm2 for femur total) FRAX is a trademark of the [employer]'s [place] [employer] Metabolic Bone Disease, a World Health Organization (WHO) Collaborating Center. Electronically signed by: Isaias Salgado MD 02/13/2025 11:53 AM [facility]
--- OUTSIDE RECORDS SUMMARY | 2025-02-13 12:38 | XMS_ITS | Clinical Summary ---
Author Organization [facility] Address [address] [place] [phone] Phone Care Team Providers Care Buyer Planner Name Role Phone Isaias Suráez DO Primary Care Provider Social History Tobacco [...] VACCINES (50+ years) (2 of 2 - PCV20 or PCV21) 08/26/2016 08/27/2015 RSV VACCINE (1 - 1-dose [...] topic Medical Devices Not on file Insurance [facility] MEDICARE PPO BLUE REPLACEMENT [facility] MEDICARE PPO BLUE REPLACEMENT [facility] MEDICARE PPO BLUE [facility]PLACEMENT [facility] MEDICARE PPO BLUE REPLACEMENT [facility] MEDICARE PPO BLUE REPLACEMENT [facility] MEDICARE PPO BLUE REPLACEMENT [facility] MEDICARE PPO BLUE REPLACEMENT [facility] MEDICARE PPO BLUE REPLACEMENT [place] [address] [place] [address] MEDICARE PPO BLUE REPLACEMENT Care Teams Buyer Planner Relationship Specialty Start Date End Date Isaias Suárez DO [address] [place] [id number] PCP - General 08/12/18 Additional Source Comments The information contained in this document represents components of the legal health record. It is not the complete legal health record.[facility]
== END 2025-02-13 11:16 | disposition home or self-care (01) ==
LOC: HO.MAMMO 11:15
PROVIDERS: PCP Physician Assistant Medical; Visit Provider Physician Assistant Medical
DX: M81.0 Age-related osteoporosis without current pathological fracture (principal)
CPT/HCPCS: 77080

== ENCOUNTER → 2025-02-13 11:30 | Outpatient (BNV) | payer MEDICARE, SELFPAY | PROVIDERS: PCP Physician Assistant Medical; Visit Provider Radiology Diagnostic Radiology | DX: E28.39 Other primary ovarian failure (principal) | CPT/HCPCS: 77080 ==